=== PATIENT | female | born 1940 | race Caucasian/White ===

== ENCOUNTER 2024-10-27 16:43 | Inpatient (IN) | payer MEDICARE, BC, SELFPAY ==
[2024-10-27] VITALS (9 sets, daily range): BP systolic 112–146; BP diastolic 64–89; PULSE 71–96; RESP 12–19; TEMP 37–37.6; O2SAT 94–99; BMI 29.2
--- NOTE | 2024-10-27 16:45 | EKG_ITS ---
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
--- NOTE | 2024-10-27 16:57 | PD.EDSEIZ ---
ED Seizures RME/HPI General Chief Complaint: Seizure Stated Complaint: SEIZURE Time Seen by Provider: 10/27/24 16:49 Arrival date/time: 10/27/24 16:43 Limitations: no limitations RME / HPI RME / HPI Narrative: DR. MIRZA MAIN ED EVALUATION: 84-year-old female with history of dementia presents to the Emergency Department [facility] from home with complaint of seizure-like activity. Per caregiver, patient was being assisted to the restroom when she began having seizure-like activity lasting approximately 2 minutes just before EMS arrival. EMS arrived about 6 minutes after the seizure ended and patient was already back to normal, not postictal. No known history of seizures. En route by EMS, blood glucose of 51; D10 was administered en route. Vitals notable for rectal temperature of 99.7?F here upon arrival. EMS also noted a right bicep bruise and a left wrist skin tear. Related Data Allergies Allergy/AdvReac Type Severity Reaction Status Date / Time No Known Allergies Allergy Verified 10/27/24 17:25 Review of Systems Review of Systems Systems Reviewed: All systems reviewed, normal except as documented Past Medical History Past Medical History NEUROLOGIC: Positive Dementia Social History SMOKING STATUS: Never smoker SUBSTANCE USE: does not use ALCOHOL: Never ED Exam General Limitations: Present no limitations General appearance: Present alert (at baseline; poor recent memory) and in no apparent distress Head Head exam: Present atraumatic, normocephalic and normal inspection Eye Eye exam: Present normal appearance, PERRL and EOMI ENT ENT exam: Present normal exam, normal oropharynx and mucous membranes moist Neck Neck exam: Present normal inspection, full ROM and trachea midline Chest Chest inspection: Present normal inspection and symmetric chest wall rise Respiratory Respiratory exam: Present normal lung sounds bilaterally Cardiovascular Cardiovascular exam: Present regular rate, normal rhythm and systolic murmur (holosystolic murmur 2/6) Abdominal Exam Abdominal exam: Present soft and normal bowel sounds Extremities Exam Extremities exam: Present normal inspection and full ROM Back Exam Back exam: Present normal inspection and full ROM Neurological Exam Neurological exam: Present alert (at baseline; poor recent memory) Psychiatric Psychiatric exam: Present normal affect and normal mood Skin Skin exam: Present warm, dry, normal color and other (dermatitis of the left leg; right bicep small bruise; left wrist small skin tear) Course Quality Measures none Orders Category Date Time Status Bedside Blood Glucose X1 Care 10/27/24 17:01 Active Bedside Blood Glucose X2 Care 10/27/24 18:45 Active Bedside COVID-19 Antigen Test NOW Care 10/27/24 18:30 Active Bedside Influenza A&B Antigen Test NOW Care 10/27/24 18:30 Completed COVID-19 Screening Questionnaire NOW Care 10/27/24 19:23 Active Riding Teacher NOW Care 10/27/24 17:12 Active Continuous Pulse Oximetry NOW Care 10/27/24 17:12 Completed Decision to Admit X1 Care 10/27/24 19:23 Completed EKG (ED ONLY) *Do not use* NOW Care 10/27/24 16:45 Completed Insert IV NOW Care 10/27/24 17:[address] head/brain wo con Stat Exams 10/27/24 17:12 Completed EKG (ED Only) Stat Exams 10/27/24 16:45 Draft XR chest 1V portable Stat Exams 10/27/24 17:12 Completed Blood Culture (Lab) Stat Lab 10/27/24 19:03 Received CBC Stat Lab 10/27/24 17:41 Completed CRP [C-Reactive Protein] Stat Lab 10/27/24 19:05 Completed Comprehensive Metabolic Panel Stat Lab 10/27/24 17:41 Completed ESR [Sed Rate (ESR)] Stat Lab 10/27/24 19:06 Completed Free T4 (Free Thyroxine) Stat Lab 10/27/24 17:41 Completed Lactate (Lactic Acid) Stat Lab 10/27/24 19:06 Completed Magnesium Stat Lab 10/27/24 17:41 Completed Procalcitonin Stat Lab 10/27/24 19:05 Completed Prothrombin Time with INR Stat Lab 10/27/24 17:41 Completed TSH [Thyroid Stimulating Hormone] Stat Lab 10/27/24 17:41 Completed Troponin I Stat Lab 10/27/24 17:41 Completed Urinalysis Stat Lab 10/27/24 16:54 Completed Azithromycin Inj [Zithromax Inj] 500 mg Med 10/27/24 18:30 Discontinued Sodium Chloride 0.9% 250 ml [Ns] 250 ml IV X1 Calcium Gluc/Ns 1000MG Ivpb [Calcium Gluc/Ns 1000mg Med 10/27/24 18:54 Discontinued Ivpb] 1,000 mg in 50 ml IV X1 Calcium Gluconate 10% Inj Med 10/27/24 20:32 Discontinued 2 gm IV X1 ONE Dextrose 50% Syr [D50w Syringe Abboject] Med 10/27/24 18:44 Discontinued 50 ml IVP X1 ONE KCL 10% Liq UDC 15 ML Med 10/27/24 18:52 Discontinued 40 meq PO X1 ONE KCL 10% Liq UDC 15 ML Med 10/27/24 20:30 Discontinued 40 meq PO X1 ONE Magnesium Sulfate 2 GM Ivpb [Magnesium Sulfate Ivpb] Med 10/27/24 19:22 Discontinued 2 gm in 50 ml IV X1 Magnesium Sulfate 4 GM Ivpb [Magnesium Sulfate Ivpb] Med 10/27/24 20:32 Discontinued 4 gm in 50 ml IV X1 Morphine Inj Med 10/27/24 19:22 Discontinued 3 mg IVP X1 ONE Ondansetron Inj [Zofran Inj] Med 10/27/24 19:27 Discontinued 4 mg IVP X1 ONE POTASSIUM CHL 10 mEq IVPB [Kcl Ivpb] Med 10/27/24 20:32 Discontinued 10 meq in 100 ml IV Q1H POTASSIUM CHL 10 mEq IVPB [Kcl Ivpb] Med 10/27/24 18:52 Discontinued 10 meq in 100 ml IV X1 Sodium Chloride 0.9% 1000 ml [Ns] 1,000 ml Med 10/27/24 17:12 Discontinued IV 999 mls/hr cefTRIAXone/D5w 1gm IV premix [Rocephin/D5w 1gm IV Med 10/27/24 18:29 Discontinued premix] 1 gm in 50 ml IV X1 levETIRAcetam INJ [Keppra Inj] Med 10/27/24 18:29 Discontinued 1,000 mg IVP X1 ONE levETIRAcetam INJ [Keppra Inj] Med 10/27/24 17:12 Discontinued 500 mg IVP X1 ONE Oxygen Delivery NOW RT 10/27/24 17:12 Active Vital Signs Vital signs: Vital Signs Temperature 99.7 F 10/27/24 16:55 Pulse Rate 94 10/27/24 16:55 Respiratory Rate 16 10/27/24 16:55 Blood Pressure 118/84 10/27/24 16:55 Pulse Oximetry (%) 94 L 10/27/24 16:55 Oxygen Delivery Method Room Air 10/27/24 16:55 Seizure MDM Narrative MDM Narrative:: I, Karina Weir am scribing for and in the presence of Dr. Mirza. Patient data External records reviewed:: [facility] previous records and EMS form Clinical information provided by:: patient and EMS Social determinants that could affect healthcare access:: none Patient has the following chronic illnesses:: Dementia. No known history of seizures. How is presenting disease/condition affected by chronic disease/condition?: uneffected by Evaluation data The following diagnostics were reviewed and interpreted by me:: lab results, radiology exam(s) and EKG tracing(s) Lab and/or radiology exams considered but not ordered:: none Interpretation Summary: My interpretation: EKG performed at 1656 hours, atrial fibrillation, rate 91, no STEMI Medications / Prescriptions Medications or Prescriptions considered but not ordered:: none Medication administrations:: Medication Administration History Acetaminophen (Acetaminophen 325 Mg Tablet) 650 mg PO Q6H PRN PRN Reason: Fever >100.4 Stop: 11/26/24 20:36 Acetaminophen (Acetaminophen 325 Mg Tablet) 650 mg PO Q6H PRN PRN Reason: PAIN SCALE 1-3 (mild Stop: 11/26/24 20:36 Hydrocodone Bitart/Acetaminophen (Hydrocodone/Apap 5/325 Tablet) 1 tab PO Q4HR PRN PRN Reason: PAIN SCALE 4-6 (Moderate Stop: 11/01/24 20:36 Last Admin: 10/28/24 01:21 Dose: 1 tab Documented By: DT Dextrose (Dextrose 50%-Water Inj 50 Ml Syringe) 25 ml IV Q15MIN PRN PRN Reason: BG 50-70 responsive npo pt Stop: 11/26/24 21:30 Dextrose (Dextrose 50%-Water Inj 50 Ml Syringe) 50 ml IV Q15MIN PRN PRN Reason: BG <50 OR BG <70 & pt unresponsive Stop: 11/26/24 21:30 Last Admin: 10/27/24 22:36 Dose: 50 ml Documented By: DT Dextrose (Dextrose 50%-Water Inj 50 Ml Syringe) 50 ml IVP X1 ONE Stop: 10/28/24 04:27 Digoxin (Digoxin 0.125 Mg Tablet) 0.125 mg PO QDAY [facility] Stop: 11/27/24 08:59 Glucagon (Glucagon Inj 1 Mg Vial) 1 mg IM Q15MIN PRN PRN Reason: BG <70, and no IV access Ceftriaxone Sodium 1 gm/ (Sodium Chloride) 50 mls @ 100 mls/hr IV QDAY [facility] Stop: 11/04/24 08:59 Azithromycin 500 mg/ Sodium (Chloride) 250 mls @ 250 mls/hr IV QDAY [facility] Stop: 10/30/24 08:59 Sodium Phosphate 30 mmol/ (Sodium Chloride) 510 mls @ 62.5 mls/hr IV X1 ONE Stop: 10/28/24 09:07 Dextrose (D10w 1000 Ml) 1,000 mls @ 70 mls/hr IV .[id number] [facility] Stop: 10/28/24 17:44 Last Admin: 10/28/24 03:29 Dose: 70 mls/hr Documented By: DT Insulin Human Lispro (Insulin Lispro (Admelog) 1 Unit/0.01 Ml Unit) 0 unit SC AC [facility]; Protocol Stop: 11/27/24 07:29 Metoprolol Succinate (Metoprolol Succinate Xl 25 Mg Tabcr) 25 mg PO QDAY [facility] Stop: 11/27/24 08:59 Ondansetron HCl (Ondansetron Inj 2 Mg/Ml Inj 2 Ml) 4 mg IVP Q6H PRN; Protocol PRN Reason: NAUSEA OR VOMITING Stop: 11/26/24 20:36 Pantoprazole Sodium (Pantoprazole 40 Mg Tablet) 40 mg PO Q12HR [facility] Stop: 11/26/24 20:59 Last Admin: 10/27/24 22:23 Dose: 40 mg Documented By: DT Paroxetine HCl (Paroxetine Hcl 10 Mg Tablet) 20 mg PO QDAY [facility] Stop: 11/27/24 08:59 Rivaroxaban (Rivaroxaban 10 Mg Tablet) 2.5 mg PO QDAY [facility] Stop: 11/27/24 08:59 Sennosides (Senna Tablet) 1 tab PO QDAY PRN; Protocol PRN Reason: constipation Stop: 11/26/24 20:36 Discontinued Medications Calcium Gluconate (Calcium Gluconate 10% Inj 1 Gm/10 Ml Vial) 2 gm IV X1 ONE Stop: 10/27/24 20:33 Last Admin: 10/27/24 22:34 Dose: Not Given Documented By: DT Non-Admin Reason: RR >10 Dextrose (Dextrose 50%-Water Inj 50 Ml Syringe) 50 ml IVP X1 ONE Stop: 10/27/24 18:45 Last Admin: 10/27/24 18:48 Dose: 50 ml Documented By: DEA Dextrose (Dextrose 50%-Water Inj 50 Ml Syringe) 50 ml IVP X1 ONE Stop: 10/27/24 22:33 Last Admin: 10/27/24 22:40 Dose: Not Given Documented By: YOLANDA Non-Admin Reason: ADMINISTERED UNDER PRN DOSE Glucagon (Glucagon Inj 1 Mg Vial) 1 mg IVP X1 ONE Stop: 10/27/24 22:33 Last Admin: 10/27/24 22:41 Dose: 1 mg Documented By: YOLANDA Sodium Chloride (Ns) 1,000 mls @ 999 mls/hr IV .Q1H1M ONE Stop: 10/27/24 18:12 Last Infusion: 10/27/24 19:05 Dose: Infused Documented By: Admin: 10/27/24 17:31 Dose: 999 mls/hr Documented By: DEA Ceftriaxone Sodium/Dextrose (Rocephin/D5w 1gm Iv Premix) 1 gm in 50 mls @ 100 mls/hr IV X1 ONE Stop: 10/27/24 18:58 Last Infusion: 10/27/24 19:25 Dose: Infused Documented By: Admin: 10/27/24 18:52 Dose: 100 mls/hr Documented By: DEA Azithromycin 500 mg/ Sodium (Chloride) 250 mls @ 250 mls/hr IV X1 ONE Stop: 10/27/24 19:29 Last Infusion: 10/27/24 20:19 Dose: Infused Documented By: Admin: 10/27/24 19:18 Dose: 250 mls/hr Documented By: YOLANDA Potassium Chloride (Kcl Ivpb) 10 meq in 100 mls @ 100 mls/hr IV X1 ONE Stop: 10/27/24 19:51 Last Infusion: 10/27/24 20:14 Dose: Infused Documented By: Admin: 10/27/24 19:14 Dose: 100 mls/hr Documented By: DT Calcium Gluconate/Sodium Chloride (Calcium Gluc/Ns 1000mg Ivpb) 1,000 mg in 50 mls @ 50 mls/hr IV X1 ONE Stop: 10/27/24 19:53 Last Infusion: 10/27/24 20:14 Dose: Infused Documented By: Admin: 10/27/24 19:14 Dose: 50 mls/hr Documented By: YOLANDA Magnesium Sulfate (Magnesium Sulfate Ivpb) 2 gm in 50 mls @ 25 mls/hr IV X1 ONE Stop: 10/27/24 21:21 Last Infusion: 10/27/24 22:25 Dose: Infused Documented By: Admin: 10/27/24 20:25 Dose: 25 mls/hr Documented By: DT Potassium Chloride (Kcl Ivpb) 10 meq in 100 mls @ 100 mls/hr IV Q1H [facility] Stop: 10/28/24 00:31 Last Infusion: 10/28/24 03:09 Dose: Infused Documented By: Admin: 10/28/24 01:08 Dose: 100 mls/hr Documented By: Infusion: 10/28/24 00:20 Dose: Infused Documented By: Admin: 10/27/24 23:20 Dose: 100 mls/hr Documented By: Infusion: 10/27/24 23:19 Dose: Infused Documented By: Admin: 10/27/24 22:19 Dose: 100 mls/hr Documented By: Infusion: 10/27/24 22:02 Dose: Infused Documented By: Admin: 10/27/24 21:02 Dose: 100 mls/hr Documented By: DT Magnesium Sulfate (Magnesium Sulfate Ivpb) 4 gm in 50 mls @ 12.5 mls/hr IV X1 ONE Stop: 10/28/24 00:31 Last Infusion: 10/28/24 02:41 Dose: Infused Documented By: Admin: 10/27/24 22:19 Dose: 12.5 mls/hr Documented By: YOLANDA Dextrose/Lactated Ringer's (D5-Lr) 1,000 mls @ 100 mls/hr IV .Q10H [place] Stop: 10/28/24 07:44 Last Admin: 10/27/24 21:41 Dose: 100 mls/hr Documented By: YOLANDA Dextrose (D10w 1000 Ml) 1,000 mls @ 70 mls/hr IV .[id number] [place] Stop: 10/28/24 12:13 Last Admin: 10/27/24 22:15 Dose: 70 mls/hr Documented By: YOLANDA Dextrose (D10w 1000 Ml) 1,000 mls @ 50 mls/hr IV .Q20H [place] Stop: 10/28/24 20:39 Last Admin: 10/28/24 01:17 Dose: Not Given Documented By: DT Non-Admin Reason: Cancelled by Provider Calcium Gluconate/Sodium Chloride (Calcium Gluc/Ns 1000mg Ivpb) 1,000 mg in 50 mls @ 50 mls/hr IV X1 ONE Stop: 10/28/24 01:55 Last Infusion: 10/28/24 02:42 Dose: Infused Documented By: Admin: 10/28/24 01:42 Dose: 50 mls/hr Documented By: DT Calcium Gluconate/Sodium Chloride (Calcium Gluc/Ns 1000mg Ivpb) 1,000 mg in 50 mls @ 50 mls/hr IV X1 ONE Stop: 10/28/24 02:59 Last Infusion: 10/28/24 03:40 Dose: Infused Documented By: Admin: 10/28/24 02:40 Dose: 50 mls/hr Documented By: DT Dextrose (D10w 1000 Ml) 1,000 mls @ 50 mls/hr IV .Q20H [facility] Stop: 10/28/24 21:19 Last Admin: 10/28/24 01:28 Dose: 50 mls/hr Documented By: DT Levetiracetam (Levetiracetam Inj 100 Mg/Ml Vial 5ml) 500 mg IVP X1 ONE Stop: 10/27/24 17:13 Last Admin: 10/27/24 17:31 Dose: 500 mg Documented By: DEA Levetiracetam (Levetiracetam Inj 100 Mg/Ml Vial 5ml) 1,000 mg IVP X1 ONE Stop: 10/27/24 18:30 Last Admin: 10/27/24 18:42 Dose: 1,000 mg Documented By: DEA Morphine Sulfate (Morphine Sulf Inj 10 Mg/Ml Vial) 3 mg IVP X1 ONE Stop: 10/27/24 19:23 Last Admin: 10/27/24 19:33 Dose: 3 mg Documented By: DT Ondansetron HCl (Ondansetron Inj 2 Mg/Ml Inj 2 Ml) 4 mg IVP X1 ONE; Protocol Stop: 10/27/24 19:28 Last Admin: 10/27/24 19:33 Dose: 4 mg Documented By: DT Potassium Chloride (Potassium Chloride 10% 20 Meq/15 Ml Udc) 40 meq PO X1 ONE Stop: 10/27/24 18:53 Last Admin: 10/27/24 19:22 Dose: 40 meq Documented By: DT Potassium Chloride (Potassium Chloride 10% 20 Meq/15 Ml Udc) 40 meq PO X1 ONE Stop: 10/27/24 20:31 Last Admin: 10/27/24 21:05 Dose: 40 meq Documented By: DT Sodium Chloride (Sodium Chloride Rt 10% 15 Ml Nebu) 5 ml INH X1 ONE Stop: 10/27/24 21:39 Last Admin: 10/27/24 22:56 Dose: 5 ml Documented By: KB see above if any Consultations Consultation(s) initiated? (list below): No Diagnosis Seizure Differential Diagnosis: other (hypoglycemia-induced seizure, new-onset seizure in elderly with dementia, syncope with convulsive movements) Most likely diagnosis given after review of the tests above:: No official diagnoses at this time, still pending diagnostic tests. Patient signout to the cage shift manager provider. Admission Indicated Admission indicated?: not indicated Explain why admission is indicated or not indicated:: No final disposition plan at this time, still pending diagnostic tests. Patient signout to the cage shift manager provider. Admission Request Was there a request for admission?: No Disposition Plan Disposition Plan: other (specify) (Patient signed out to Dr. Carrillo, pending head CT, CXR, remainder of labs, and final disposition.) Discharge Plan Plan Patient Disposition: Admit Acute Care w/in Hospital Problem List Clinical Impression: Pneumonia, UTI (urinary tract infection), Hypokalemia, Hypocalcemia, Hypoglycemia, Witnessed seizure-like activity, Hypomagnesemia MD Attestation MD Attestation I took over the care from previous shift physician at 6 PM on 10/27/2024. See previous notes for complete H & P and ED course. I reviewed all diagnostic test results. My interpretation of the EKG is My interpretation of the chest x-ray is Bilateral lower lung zone pneumonia. My review of the Head CT report is NAD. Consider elective brain MRI follow-up, pre and postcontrast procedure protocol. Blood tests and urine tests Diagnoses include: Treatment here included 191: I discussed the case with our hospitalist. About the presentation and exam and diagnostics and treatments here. And need of further care in the hospital. Will accept the patient. Tyrel Carrillo MD
--- NOTE | 2024-10-27 17:12 | XR_ITS ---
Examination: CT brain head without contrast. 2-D sagittal coronal reconstructions Date and time of exam:October 27, 2024 1535 hours INDICATION: Seizure today CTDI: vol (mGy):48.5 DLP: (mGycm):1044 Technique: Multiple CT axial sections of the brain have been obtained, 5 mm slice thickness. Contrast has not been administered. 2-D sagittal, coronal reconstructions have been obtained Low dose protocols were performed. One or more of the following dose reduction techniques were used; automated exposure control, adjustment of the mA and/or KV according to patient size, use of iterative reconstruction technique. Findings: No significant ventricular enlargement. Intra-axial or extra-axial hemorrhage density is not seen. No mass effect or midline shift Basal cisterns are not remarkable. Fourth ventricle is midline. Cranial vault intact. Impression: Negative for acute hemorrhage, mass effect or midline shift Consider elective brain MRI follow-up, pre and postcontrast procedure protocol
--- NOTE | 2024-10-27 17:12 | XR_ITS ---
Examination: AP chest single view TECHNIQUE: AP portable upright chest single view Date and time: October 27, 2024, 1724 hours INDICATIONS: Chest pain and shortness of breath coughing beginning today. FINDINGS: Opacity in both lower lung zones consistent with pneumonia No major cardiac enlargement Mild to moderate elevation left hemidiaphragm Ectatic and enlarged thoracic aorta Prominent osteopenia Old deformity right humeral neck IMPRESSION: Bilateral lower lung zone pneumonia
[2024-10-27 17:25] LABS: Collection Type, Urine Clean Catch
[2024-10-27] MEDS: SODIUM CHLORIDE 0.9% 1000 ML 1,000 ML 999 ML IV (17:31)
[2024-10-27] MEDS: levETIRAcetam INJ 100 MG/ML VIAL 5ML 500 MG IVP (17:31)
[2024-10-27 17:50] LABS: Basophils # (Auto) 0.0 Thou/mm3 (0.0-0.2); Basophils % (Auto) 0 % (0-2.5); Eosinophils # (Auto) 0.1 Thou/mm3 (0.0-0.5); Eosinophils % (Auto) 1 % (0-10); Hematocrit 34.7 % (36.0-46.0); Hemoglobin 11.0 g/dL (12.0-16.0); Immature Granulocytes Auto 0.02 Thou/mm3 (0.00-0.00); Lymphocytes # (Auto) 0.9 Thou/mm3 (1.0-4.8); Lymphocytes % (Auto) 18 % (10-50); Mean Corpuscular HGB Conc 31.7 g/dl (31.0-37.0); Mean Corpuscular Hemoglobin 26.8 pg (25.0-35.0); Mean Corpuscular Volume 85 fL (80-100); Monocytes # (Auto) 0.6 Thou/mm3 (0.0-0.8); Monocytes % (Auto) 11 % (0-12); Neutrophils # (Auto) 3.6 Thou/mm3 (1.8-7.7); Neutrophils % (Auto) 70 % (37-80); Nucleated Red Blood Cell # 0.00 Thou/mm3 (0.00-0.00); Nucleated Red Blood Cell % 0 /100 WBC (0); Platelet Count 179 Thou/mm3 (140-440); RDW Standard Deviation 43.4 fL (36.4-46.3); Red Blood Count 4.10 Miln/mm3 (4.00-5.20); White Blood Count 5.2 Thou/mm3 (3.6-11.0)
[2024-10-27 17:53] LABS: Amorphous Crystals,Urine Present (Absent); Bacteria,Urine 4+; Bilirubin,Urine Negative (Negative); Blood,Urine 1+ (Negative); Clarity,Urine Turbid (Clear/Hazy); Color,Urine Yellow (Lt Yel-Yel); Glucose, Urine 2+ (Negative); Ketones,Urine 1+ (Negative); Leukocyte Esterase,Urine Positive (Negative); Nitrite,Urine Positive (Negative); PH,Urine 5.5 (5.0-7.0); Protein,Urine Trace (Neg - Trace); RBC,Urine 11 /hpf (0-3); Specific Gravity,Urine 1.015 (1.001-1.035); Squamous Epithelial Cell,Urine 3 /hpf (0-5); Urobilinogen,Urine Negative mg/dL (0.0-1.0); WBC,Urine 74 /hpf (0-5)
[2024-10-27 18:04] LABS: INR 1.4 (0.9-1.3); Prothrombin Time 15.4 Seconds (9.0-12.2)
--- NOTE | 2024-10-27 18:07 | PD.EDADDENDU ---
Emergency Room Addendum <Jud Byrne - Last Filed: 10/27/24 20:02> Addendum Narrative: I took over the care from previous shift physician at 6 PM on 10/27/2024. See previous notes for complete H & P and ED course. I reviewed all diagnostic test results. My interpretation of the EKG is My interpretation of the chest x-ray is Bilateral lower lung zone pneumonia. My review of the Head CT report is NAD. Consider elective brain MRI follow-up, pre and postcontrast procedure protocol. Blood tests and urine tests Diagnoses include: Treatment here included 1910: I discussed the case with our hospitalist. About the presentation and exam and diagnostics and treatments here. And need of further care in the hospital. Will accept the patient. Tyrel Carrillo MD <Tyrel Carrillo MD - Last Filed: 10/27/24 20:06> Addendum Narrative: I took over the care from previous shift physician, Dr. Mirza, at 6 PM on 10/27/2024. See previous notes for complete H & P and ED course. I reviewed all diagnostic test results. My interpretation of the EKG is: Atrial fibrillation (91 bpm) with nonspecific ST-T changes. My interpretation of the chest x-ray is bilateral infiltrates. My review of the Head CT report is NAD. Blood tests and urine tests remarkable for K 2.6, lactic acid 3.9, Ca 5.9, Mg 1.0, and UTI. Diagnoses include: Seizure-like activity, UTI, pneumonia, hypoglycemia, hypokalemia, hypocalcemia, and hypomagnesemia. Treatment here included IV fluid, Keppra, Zithromax, Rocephin, KCl, MgSO4, and calcium gluconate. 191: I discussed the case with our hospitalist. About the presentation and exam and diagnostics and treatments here. And need of further care in the hospital. Will accept the patient. Tyrel Carrillo MD
[2024-10-27 18:42] LABS: Alanine Aminotransferase 9 U/L (10-49); Albumin, Serum 3.2 gm/dL (3.4-4.8); Albumin/Globulin Ratio 1.5 (1.2-2.2); Alkaline Phosphatase 49 U/L (46-116); Anion Gap 17 (7-16); Aspartate Amino Transferase 35 U/L (0-34); BUN/Creatinine Ratio 13 Ratio (12-20); Bilirubin,Total 1.1 mg/dL (0.3-1.2); Blood Urea Nitrogen 10 mg/dL (9-23); Carbon Dioxide 22.3 mMol/L (20.0-31.0); Chloride 103 mMol/L (98-107); Creatinine (Component) 0.8 mg/dL (0.6-1.3); Estimated Creatinine Clearance 50.8 mL/min (>60); Globulin 2.2 gm/dL (2.3-3.5); Glucose 110 mg/dL (74-106); Osmolality,Calculated 283 (275-295); Sodium 142 mMol/L (136-145); Total Protein 5.4 gm/dL (5.7-8.2); eGFR > 60 See Note
[2024-10-27] MEDS: levETIRAcetam INJ 100 MG/ML VIAL 5ML 1000 MG IVP (18:42)
[2024-10-27 18:47] LABS: Calcium 5.9 mg/dL (8.3-10.6); Calcium (Corrected) 6.5 mg/dL (8.5-10.1); Potassium 2.6 mMol/L (3.4-5.1)
[2024-10-27] MEDS: DEXTROSE 50%-WATER INJ 50 ML SYRINGE IVP (18:48)
[2024-10-27] MEDS: cefTRIAXone/D5w 1gm IV premix 1 GM/50 ML BAG IV (18:52)
[2024-10-27 19:11] LABS: Free T4 (Free Thyroxine) 1.22 ng/dL (0.89-1.76); Magnesium 1.0 mg/dL (1.6-2.6); Thyroid Stimulating Hormone 0.20 uIU/mL (0.55-4.78); Troponin I < 0.020 ng/mL (0.0-0.045)
[2024-10-27] MEDS: POTASSIUM CHL 10 mEq IVPB 10 MEQ/100 ML BAG 100 MEQ IV ×4 (19:14→23:20)
[2024-10-27] MEDS: CALCIUM GLUC/NS 1000MG IVPB 1,000 MG/50 ML BAG 50 MG IV (19:14)
[2024-10-27 19:17] LABS: Lactate (Lactic Acid) 3.9 mMol/L (0.4-2.0)
[2024-10-27] MEDS: AZITHROMYCIN INJ 500 MG in SODIUM CHLORIDE 0.9% 250 ML 250 ML 250 MG IV (19:18)
[2024-10-27 19:19] LABS: Sed Rate (ESR) 30 mm/hr (0-30)
[2024-10-27] MEDS: POTASSIUM CHLORIDE 10% 20 MEQ/15 ML UDC 40 MEQ PO ×2 (19:22→21:05)
[2024-10-27] MEDS: MORPHINE SULF INJ 10 MG/ML VIAL 3 MG IVP (19:33)
[2024-10-27] MEDS: ONDANSETRON INJ 2 MG/ML INJ 2 ML 4 MG IVP (19:33)
[2024-10-27 19:46] LABS: C-Reactive Protein < 0.5 mg/dL (0.0-0.9); Procalcitonin 0.07 ng/ml (0.0-0.49)
[2024-10-27] MEDS: Magnesium Sulfate 2 GM Ivpb 2 GM/50 ML BAG IV (20:25)
[2024-10-27] MEDS: DEXTROSE 5%-LACTATED RINGERS 1,000 ML 100 ML IV (21:41)
[2024-10-27 22:07] LABS: Base Excess, Venous 0 (-3-3); O2 Saturation, Venous 66 % (96-97); PCO2, Venous 33 mmHg (36-56); PO2, Venous 32 mmHg (15-58); pH, Venous 7.46 (7.33-7.66)
--- NOTE | 2024-10-27 22:07 | ESHP_ITS ---
Documentation for date of: 10/27/24 HPI History of Present Illness Chief complaint: Seizure-like activity, asx with Hypoglycemia, metabolic, uti History of present illness: 84-year-old female with a history of dementia, atrial fibrillation, type 2 diabetes mellitus (not on insulin), hypertension, heart disease s/p cardiac catheterization, and blindness (vision loss due to diabetes), who presents after an episode of seizure-like activity at home. Per caregiver (her daughter), the patient was being assisted to the restroom when she developed generalized shaking, stiffened extremities, upward eye deviation, and arching of her back lasting approximately 2 minutes. No prior seizure history. EMS arrived after the episode ended; she was not postictal. Initial EMS glucose was 51 -> treated with D10 and D50 -> dave to 196 -> then dropped again to 66 -> given additional D50 and juice -> trended to 125 -> 109 - > 90. Started on D10 infusion which stabilized her glucose to ~89. Patient has had minimal oral intake for 2 days due to abdominal pain and nausea. She reportedly has not eaten well, tolerating only small snacks or Coke, and has had some vomiting. No recent insulin use. Stomach pain started yesterday and is diffuse, with discomfort on palpation. Denies hematemesis, melena, or diarrhea. Urinary frequency and ammoniacal odor noted by caregiver. She also endorsed mild chest discomfort and shortness of breath. No recent headache or trauma. She is normally interactive but appeared more confused and in pain today. ED Course: The patient was brought in by EMS following a witnessed seizure-like episode at home. On EMS arrival, she was alert without postictal confusion, but her initial [id number] glucose was critically low at 51 mg/dL. She was treated with D10 and an amp of D50 in the field, with transient improvement to 196 mg/dL. However, her glucose continued to trend down despite repeated D50 boluses and oral intake, reaching a aric of 66, then 125, 109, and 90 mg/dL. A D10 infusion was initiated, stabilizing her glucose in the high 80s. Labs revealed significant electrolyte abnormalities, including hypokalemia, hypocalcemia, and hypomagnesemia, all of which were repleted. UA was suggestive of a urinary tract infection, and chest X-ray revealed bilateral lower lung zone pneumonia. EKG showed atrial fibrillation with a controlled rate, and head CT ruled out acute intracranial pathology. She remained hemodynamically stable but was admitted for further management of suspected sepsis, recurrent hypoglycemia, and new-onset seizure-like activity. ROS: Constitutional: Reduced oral intake, fatigue Neuro: Seizure-like episode, increased confusion GI: Diffuse abdominal pain, nausea, minimal vomiting, poor PO intake : Increased urination, ammoniacal odor Cardiac: Chest discomfort, history of AFib Resp: Mild SOB Skin: Right bicep bruise, left wrist tear Endocrine: Known DM2, hypoglycemia MSK: Reports arthritis Psych: History of depression Past Medical History: * Dementia * Atrial fibrillation (diagnosed last year) * Type 2 diabetes mellitus (no insulin use) * Hypertension * Coronary artery disease s/p catheterization * Degenerative Arthritis * Depression * Blindness (from diabetic retinopathy) Past Surgical History: * Cardiac catheterization (details unknown) Medications (per caregiver bag): * Prednisone 1 mg * Digoxin 125 mcg * Metoprolol 25 mg * Xarelto * glimepiride * Rivastigmine (Exelon) patch * Pantoprazole 40 mg Allergies: * NKDA Family History: * Unknown Social History: * Lives at home with caregiver (daughter) * Fully dependent for ADLs * Blind (total vision loss) * Non-smoker, no alcohol, no drug use Imaging: * CXR: Bilateral lower lung zone pneumonia * EKG: Atrial fibrillation, HR 91 * Head CT: No acute findings Exam Vital Signs Temp Pulse Resp BP Pulse Ox O2 Del Method 98.6 F 79 14 130/65 99 Room Air 10/27/24 21:00 10/27/24 21:00 10/27/24 21:00 10/27/24 21:00 10/27/24 21:10/27/24 21:00 Narrative Exam General: Alert, frail elderly female in mild distress Neuro: No focal deficits; at baseline for dementia per caregiver HEENT: Pale conjunctiva CV: Irregularly irregular, HR 91 Resp: No distress noted; lungs not documented Abdomen: Diffuse tenderness reported Skin: Right bicep ecchymosis, left wrist skin tear Ext: No edema Results: Labs 10/27/24 17:41 10/27/24 23:10 Labs: Short CBC 10/27/24 Range/Units 17:41 WBC 5.2 (3.6-11.0) Thou/mm3 Hgb 11.0 L (12.0-16.0) g/dL Hct 34.7 L (36.0-46.0) % Plt Count 179 (140-440) Thou/mm3 BMP 10/27/24 17:41 Sodium 142 Potassium 2.6 L* Chloride 103 Carbon Dioxide 22.3 BUN 10 Creatinine 0.8 Glucose 110 H Calcium 5.9 L* Cardiac Enzymes 10/27/24 Range/Units 17:41 Troponin I < 0.020 (0.0-0.045) ng/mL Liver Function 10/27/24 Range/Units 17:41 Total Bilirubin 1.1 (0.3-1.2) mg/dL AST 35 H (0-34) U/L ALT 9 L (10-49) U/L Alkaline Phosphatase 49 (46-116) U/L Albumin 3.2 L (3.4-4.8) gm/dL Urine 10/27/24 Range/Units 16:54 Urine Color Yellow (Lt Yel-Yel) Urine Clarity Turbid A (Clear/Hazy) Urine pH 5.5 (5.0-7.0) Ur Specific [place] 1.015 (1.001-1.035) Urine Protein Trace (Neg - Trace) Urine Glucose (UA) 2+ A (Negative) Quality Measures Quality Measures VTE prophylaxis Advance care planning discussed with:: legal surragate Medications Home Medications and Allergies Allergies Allergy/AdvReac Type Severity Reaction Status Date / Time No Known Allergies Allergy Verified 10/27/24 17:25 Visit Medications Acetaminophen (Acetaminophen 325 Mg Tablet) 650 mg PO Q6H PRN PRN Reason: Fever >100.4 Stop: 11/26/24 20:36 Acetaminophen (Acetaminophen 325 Mg Tablet) 650 mg PO Q6H PRN PRN Reason: PAIN SCALE 1-3 (mild Stop: 11/26/24 20:36 Hydrocodone Bitart/Acetaminophen (Hydrocodone/Apap 5/325 Tablet) 1 tab PO Q4HR PRN PRN Reason: PAIN SCALE 4-6 (Moderate Stop: 11/01/24 20:36 Dextrose (Dextrose 50%-Water Inj 50 Ml Syringe) 25 ml IV Q15MIN PRN PRN Reason: BG 50-70 responsive npo pt Stop: 11/26/24 21:30 Dextrose (Dextrose 50%-Water Inj 50 Ml Syringe) 50 ml IV Q15MIN PRN PRN Reason: BG <50 OR BG <70 & pt unresponsive Stop: 11/26/24 21:30 Glucagon (Glucagon Inj 1 Mg Vial) 1 mg IM Q15MIN PRN PRN Reason: BG <70, and no IV access Potassium Chloride (Kcl Ivpb) 10 meq in 100 mls @ 100 mls/hr IV Q1H [facility] Stop: 10/28/24 00:31 Last Admin: 10/27/24 21:02 Dose: 100 mls/hr Magnesium Sulfate (Magnesium Sulfate Ivpb) 4 gm in 50 mls @ 12.5 mls/hr IV X1 ONE Stop: 10/28/24 00:31 Ceftriaxone Sodium 1 gm/ (Sodium Chloride) 50 mls @ 100 mls/hr IV QDAY [facility] Stop: 11/04/24 08:59 Azithromycin 500 mg/ Sodium (Chloride) 250 mls @ 250 mls/hr IV QDAY [facility] Stop: 10/30/24 08:59 Dextrose (D10w 1000 Ml) 1,000 mls @ 70 mls/hr IV .[id number] [facility] Stop: 10/28/24 12:13 Insulin Human Lispro (Insulin Lispro (Admelog) 1 Unit/0.01 Ml Unit) 0 unit SC AC NORBERT; Protocol Stop: 11/27/24 07:29 Ondansetron HCl (Ondansetron Inj 2 Mg/Ml Inj 2 Ml) 4 mg IVP Q6H PRN; Protocol PRN Reason: NAUSEA OR VOMITING Stop: 11/26/24 20:36 Pantoprazole Sodium (Pantoprazole 40 Mg Tablet) 40 mg PO Q12HR [facility]BERT Stop: 11/26/24 20:59 Sennosides (Senna Tablet) 1 tab PO QDAY PRN; Protocol PRN Reason: constipation Stop: 11/26/24 20:36 Discontinued Medications Calcium Gluconate (Calcium Gluconate 10% Inj 1 Gm/10 Ml Vial) 2 gm IV X1 ONE Stop: 10/27/24 20:33 Dextrose (Dextrose 50%-Water Inj 50 Ml Syringe) 50 ml IVP X1 ONE Stop: 10/27/24 18:45 Last Admin: 10/27/24 18:48 Dose: 50 ml Sodium Chloride (Ns) 1,000 mls @ 999 mls/hr IV .Q1H1M ONE Stop: 10/27/24 18:12 Last Infusion: 10/27/24 19:05 Dose: Infused Ceftriaxone Sodium/Dextrose (Rocephin/D5w 1gm Iv Premix) 1 gm in 50 mls @ 100 mls/hr IV X1 ONE Stop: 10/27/24 18:58 Last Infusion: 10/27/24 19:25 Dose: Infused Azithromycin 500 mg/ Sodium (Chloride) 250 mls @ 250 mls/hr IV X1 ONE Stop: 10/27/24 19:29 Last Infusion: 10/27/24 20:19 Dose: Infused Potassium Chloride (Kcl Ivpb) 10 meq in 100 mls @ 100 mls/hr IV X1 ONE Stop: 10/27/24 19:51 Last Infusion: 10/27/24 20:14 Dose: Infused Calcium Gluconate/Sodium Chloride (Calcium Gluc/Ns 1000mg Ivpb) 1,000 mg in 50 mls @ 50 mls/hr IV X1 ONE Stop: 10/27/24 19:53 Last Infusion: 10/27/24 20:14 Dose: Infused Magnesium Sulfate (Magnesium Sulfate Ivpb) 2 gm in 50 mls @ 25 mls/hr IV X1 ONE Stop: 10/27/24 21:21 Last Admin: 10/27/24 20:25 Dose: 25 mls/hr Dextrose/Lactated Ringer's (D5-Lr) 1,000 mls @ 100 mls/hr IV .Q10H [facility]ERT Stop: 10/28/24 07:44 Last Admin: 10/27/24 21:41 Dose: 100 mls/hr Levetiracetam (Levetiracetam Inj 100 Mg/Ml Vial 5ml) 500 mg IVP X1 ONE Stop: 10/27/24 17:13 Last Admin: 10/27/24 17:31 Dose: 500 mg Levetiracetam (Levetiracetam Inj 100 Mg/Ml Vial 5ml) 1,000 mg IVP X1 ONE Stop: 10/27/24 18:30 Last Admin: 10/27/24 18:42 Dose: 1,000 mg Morphine Sulfate (Morphine Sulf Inj 10 Mg/Ml Vial) 3 mg IVP X1 ONE Stop: 10/27/24 19:23 Last Admin: 10/27/24 19:33 Dose: 3 mg Ondansetron HCl (Ondansetron Inj 2 Mg/Ml Inj 2 Ml) 4 mg IVP X1 ONE; Protocol Stop: 10/27/24 19:28 Last Admin: 10/27/24 19:33 Dose: 4 mg Potassium Chloride (Potassium Chloride 10% 20 Meq/15 Ml Udc) 40 meq PO X1 ONE Stop: 10/27/24 18:53 Last Admin: 10/27/24 19:22 Dose: 40 meq Potassium Chloride (Potassium Chloride 10% 20 Meq/15 Ml Udc) 40 meq PO X1 ONE Stop: 10/27/24 20:31 Last Admin: 10/27/24 21:05 Dose: 40 meq Sodium Chloride (Sodium Chloride Rt 10% 15 Ml Nebu) 5 ml INH X1 ONE Stop: 10/27/24 21:39 Assessment & Plan Plan 84-year-old female with dementia, DM2 and AFib, presenting with seizure-like activity and hypoglycemia, found to have electrolyte abnormalities, pneumonia, UTI, and AFib on EKG. #New-onset seizure-like activity Single witnessed episode, likely provoked by severe hypoglycemia and/or metabolic derangement and/or UTI Per daughter patient had no postictal state, incontinence, or tongue biting. Patient received loading dose of Levetiracetam, will hold antiepileptics as patient had no prior hx of epilepsy and low risk of recurrence. Head CT negative for acute findings or mass Plan: * Monitor for recurrence * EEG if recurrent or unclear episodes * Neurology consult if persistent events #Hypoglycemia Likely multifactorial (poor PO, infection, possibly meds). Plan: * Continue D10W drip * Monitor glucose q1h * Avoid insulin/sulfonylureas * A1c pending #Pneumonia Bilateral lower lung infiltrates on CXR Plan: * Continue ceftriaxone (10/27- ) * Start azithromycin * Monitor vitals, oxygenation * Repeat CXR if symptoms worsen #UTI Positive UA findings, poor PO intake, Plan: * Continue empiric abx (ceftriaxone covers) * Blood/urine cultures pending #Aniongap metabolic acidosis-Resolved #Lactic acidosis-Improving #Electrolyte abnormalities (hypoK, hypoCa, hypoMg) Plan: * Continue repletion per protocol * Daily BMP/Mg/Ca #Atrial fibrillation Chronic AFib, rate-controlled CHADSVASC 5 Plan: * Continue home digoxin/metoprolol/xarelto when stable #Abdominal pain, poor oral intake Likely multifactorial: infection, med-related, gastritis Plan: * Pantoprazole, monitor bowel function * Abdominal exam daily * Monitor for obstruction/perforation #Subclinical hyperthyroidism TSH 0.2 with normal free T4 Plan: * No treatment for now * Recheck TSH in future; follow-up with PCP #Dementia / Vision loss Plan: * Reinforce fall precautions * Reassess for delirium daily * Keep orientation cues at bedside #Skin injuries (bruises/tear) Plan: * Wound care consult * Monitor for healing Health Maintenance Disposition: Admit to tele Diet: advance after swallow screen Thromboprophylaxis: Xarelto 2.5mg GI prophylaxis: Pantoprazole IV Code Status: Full code ----- Plan discussed with attending physician Dr. Ramin Frost MD PGY-1 Internal Medicine Attending Provider Attestation/Addendum Attending Provider Attestation/Addendum After examination of the patient and review of the clinical data I feel that this patient needs admission to the hospital for further treatment/evaluation. I Rodrigo Cabral MD, attest that I was physically present for mcdonnell portions of evaluation, and examined patient, labs and imaging of patient were reviewed with the residents and a plan of care was discussed with IM team, along with patient's two daughters present by bedside. I agree with the findings and plans documented above.
[2024-10-27 22:11] LABS: Reflex Lactate? Y
[2024-10-27] MEDS: DEXTROSE 10%-WATER 1000 ML 1,000 ML 70 ML IV (22:15)
[2024-10-27] MEDS: Magnesium Sulfate 4 GM Ivpb 4 GM/50 ML BAG IV (22:19)
[2024-10-27] MEDS: PANTOPRAZOLE 40 MG TABLET PO (22:23)
[2024-10-27] MEDS: DEXTROSE 50%-WATER INJ 50 ML SYRINGE IV (22:36)
[2024-10-27] MEDS: GLUCAGON INJ 1 MG VIAL IVP (22:41)
[2024-10-27] MEDS: SODIUM CHLORIDE RT 10% 15 ML NEBU 5 ML INH (22:56)
--- NOTE | 2024-10-27 23:02 | PC.RT ---
unable to obtain sputum sample with sputum induction
[2024-10-27 23:24] LABS: Lactate (Lactic Acid) 2.5 mMol/L (0.4-2.0)
[2024-10-27 23:35] LABS: Glucose Estimated Average 146 mg/dL (80-131); Hemoglobin A1C 6.7 % Hgb (4.8-6.0)
[2024-10-27 23:51] LABS: Albumin, Serum 3.3 gm/dL (3.4-4.8); Anion Gap 13 (7-16); BUN/Creatinine Ratio 8 Ratio (12-20); Blood Urea Nitrogen 7 mg/dL (9-23); Carbon Dioxide 23.4 mMol/L (20.0-31.0); Chloride 103 mMol/L (98-107); Creatinine (Component) 0.9 mg/dL (0.6-1.3); Estimated Creatinine Clearance 45.1 mL/min (>60); Magnesium 2.6 mg/dL (1.6-2.6); Phosphorous 1.1 mg/dL (2.4-5.1); Potassium 3.1 mMol/L (3.4-5.1); Sodium 139 mMol/L (136-145); eGFR > 60 See Note
[2024-10-28] VITALS (19 sets, daily range): BP systolic 98–181; BP diastolic 50–114; PULSE 60–93; RESP 14–20; TEMP 36–37; O2SAT 91–100
[2024-10-28 00:08] LABS: Osmolality,Calculated 295 (275-295)
[2024-10-28 00:16] LABS: Calcium 6.2 mg/dL (8.3-10.6); Calcium (Corrected) 6.8 mg/dL (8.5-10.1); Glucose 460 mg/dL (74-106)
[2024-10-28] MEDS: POTASSIUM CHL 10 mEq IVPB 10 MEQ/100 ML BAG 100 MEQ IV (01:08)
[2024-10-28] MEDS: HYDROcodone/APAP 5/325 TABLET 1 TAB PO ×2 (01:21→23:19)
[2024-10-28] MEDS: DEXTROSE 10%-WATER 1000 ML 1,000 ML 50 ML IV (01:28)
[2024-10-28] MEDS: CALCIUM GLUC/NS 1000MG IVPB 1,000 MG/50 ML BAG 50 MG IV ×3 (01:42→16:57)
[2024-10-28 02:19] LABS: Reflex Lactate? Y
[2024-10-28 02:44] LABS: Lactic Acid, 3 HR 3.4 mMol/L (0.4-2.0)
[2024-10-28] MEDS: DEXTROSE 10%-WATER 1000 ML 1,000 ML 70 ML IV (03:29)
--- NOTE | 2024-10-28 04:18 | PC.NURSE ---
FAMILY CONTACT INFORMATION - RY SINGLETARY [phone].
[2024-10-28 04:50] LABS: Basophils # (Auto) 0.0 Thou/mm3 (0.0-0.2); Basophils % (Auto) 1 % (0-2.5); Eosinophils # (Auto) 0.1 Thou/mm3 (0.0-0.5); Eosinophils % (Auto) 1 % (0-10); Hematocrit 36.8 % (36.0-46.0); Hemoglobin 11.3 g/dL (12.0-16.0); Immature Granulocytes Auto 0.01 Thou/mm3 (0.00-0.00); Lymphocytes # (Auto) 1.4 Thou/mm3 (1.0-4.8); Lymphocytes % (Auto) 22 % (10-50); Mean Corpuscular HGB Conc 30.7 g/dl (31.0-37.0); Mean Corpuscular Hemoglobin 26.2 pg (25.0-35.0); Mean Corpuscular Volume 85 fL (80-100); Monocytes # (Auto) 0.7 Thou/mm3 (0.0-0.8); Monocytes % (Auto) 11 % (0-12); Neutrophils # (Auto) 4.1 Thou/mm3 (1.8-7.7); Neutrophils % (Auto) 65 % (37-80); Nucleated Red Blood Cell # 0.00 Thou/mm3 (0.00-0.00); Nucleated Red Blood Cell % 0 /100 WBC (0); Platelet Count 182 Thou/mm3 (140-440); RDW Standard Deviation 44.4 fL (36.4-46.3); Red Blood Count 4.31 Miln/mm3 (4.00-5.20); White Blood Count 6.3 Thou/mm3 (3.6-11.0)
[2024-10-28] MEDS: DEXTROSE 50%-WATER INJ 50 ML SYRINGE IVP (04:50)
[2024-10-28] MEDS: OCTREOTIDE ACET INJ 1,000 MCG in SODIUM CHLORIDE 0.9% 100 ML 5.1 MCG IV (05:44)
[2024-10-28 06:54] LABS: Albumin, Serum 3.4 gm/dL (3.4-4.8); Anion Gap 10 (7-16); BUN/Creatinine Ratio 6 Ratio (12-20); Blood Urea Nitrogen 5 mg/dL (9-23); Calcium 6.9 mg/dL (8.3-10.6); Calcium (Corrected) 7.4 mg/dL (8.5-10.1); Carbon Dioxide 25.6 mMol/L (20.0-31.0); Chloride 105 mMol/L (98-107); Creatinine (Component) 0.8 mg/dL (0.6-1.3); Estimated Creatinine Clearance 50.8 mL/min (>60); Glucose 120 mg/dL (74-106); Magnesium 2.9 mg/dL (1.6-2.6); Osmolality,Calculated 279 (275-295); Phosphorous 1.3 mg/dL (2.4-5.1); Potassium 3.0 mMol/L (3.4-5.1); Sodium 141 mMol/L (136-145); eGFR > 60 See Note
[2024-10-28] MEDS: INSULIN LISPRO (AdmeLOG) 1 UNIT/0.01 ML UNIT SC (07:55)
[2024-10-28] MEDS: POT PHOS 15 mMol in NS 250 ML 15 MMOL/250 ML BAG 83.333 MMOL IV ×2 (08:22→11:16)
[2024-10-28] MEDS: DIGOXIN 0.125 MG TABLET PO (09:56)
[2024-10-28] MEDS: PANTOPRAZOLE 40 MG TABLET PO ×2 (09:56→21:00)
[2024-10-28] MEDS: METOPROLOL SUCCINATE XL 25 MG TABCR PO (09:57)
[2024-10-28] MEDS: cefTRIAXone/D5w 1gm IV premix 1 GM/50 ML BAG IV (09:58)
--- NOTE | 2024-10-28 10:14 | PC.CC ---
Patient is a 84 year-old female who presents to the hospital for symptomatic hypoglycemia. Saida MORALES made [id number] contact with patient. ASW introduced self, role, and reason for visit.?Patient appeared alert and oriented to self, location, and situation.?Patient was pleasant and engaged in initial assessment. Patient confirmed information on demographics and reports to living at home with her daughter, Brenda Ledbetter. Patient reports that in the event she is unable to make her own medical decision her medical decision maker is her daughter, Brenda Ledbetter . Patient reports that she ambulates with a front wheel walker and is able to complete her own ADLs. Patient reports she does not use any oxygen and is not a dialysis patient. Patient reports her primary provider is [facility] for prescription medications she uses [facility]. Per bedside EFRAÍN Reyes patient is legally blind. Upon discharge patient plans to return home. field services analyst to follow up with any discharge needs.
[2024-10-28 14:48] LABS: Albumin, Serum 3.7 gm/dL (3.4-4.8); Anion Gap 13 (7-16); BUN/Creatinine Ratio 7 Ratio (12-20); Blood Urea Nitrogen < 5 mg/dL (9-23); Carbon Dioxide 25.8 mMol/L (20.0-31.0); Chloride 103 mMol/L (98-107); Creatinine (Component) 0.7 mg/dL (0.6-1.3); Estimated Creatinine Clearance 58.0 mL/min (>60); Glucose 154 mg/dL (74-106); Osmolality,Calculated 283 (275-295); Phosphorous 4.4 mg/dL (2.4-5.1); Potassium 3.5 mMol/L (3.4-5.1); Sodium 142 mMol/L (136-145); eGFR > 60 See Note
[2024-10-28 15:09] LABS: Calcium 6.6 mg/dL (8.3-10.6); Calcium (Corrected) 6.8 mg/dL (8.5-10.1)
--- NOTE | 2024-10-28 16:02 | ESPR_ITS ---
<Statement entered by Osiris Montilla MD - 11/07/24 14:32> I reviewed above note and agree with findings and plans. I have also personally examined the patient with medicine team and went over assessment and plan with medical team including chemist internship and resident physician. <Statement entered by Vidhi Dumont MD - 10/28/24 17:53> Patient seen at bedside. Patient is an overnight admission originally presented with hypoglycemia for which she has been receiving multiple amps of D50. Patient was started on D10 drip along with octreotide drip to correct hypoglycemia however this morning patient's blood glucose increased therefore both of the drips were stopped and continued blood glucose checks every 1 hour. Over the course of the day patient's blood glucose have been within normal range will hold sliding scale insulin for now and continue to monitor blood glucose every 4 hours. Patient is encouraged to eat a high carb diet. Patient was seen and examined by me personally. I have directly supervised and reviewed documentation by the team resident and agree with its findings with the following exceptions/and additional findings. ------- Plan of care was discussed with the attending, Dr. Eladia Dumont, PGY-2 Documentation for date of: 10/28/24 Subjective Subjective Interval history: Admitted overnight. Patient's daughter Latha not at bedside at the time of interview. Patient is pleasantly demented, lying comfortably in bed not in acute distress. Patient is not able to recall why she is here in the hospital, AOx2 only to person and time. Per chart review, patient has had very decreased oral intake but has continued taking diabetic medication of glimepiride. Endorses abdominal pain, worse on the left side. Is unsure when last bowel movement was. Patient currently denies chest pain, shortness of breath, palpitations, urinary symptoms, dizziness, or lightheadedness. On admission to to hospitalist team, patient was on D10 drip with blood glucose levels increasing from 174 to a max of 258, at which octreotide and D10 drip were discontinued. Patient was encouraged to drink juice boxes and eat high carb diet. Patient glucose now ranges 140s to 150s. In the ED, was also noted to have electrolyte abnormalities with a K 2.6, Phosphorus 1.1 and Mg 1, which were repleted. Exam Vital Signs Temp Pulse Resp BP Pulse Ox O2 Del Method O2 Flow Rate 97.5 F 67 18 168/71 H 93 L Room Air 2 10/28/24 12:19 10/28/24 12:19 10/28/24 12:19 10/28/24 12:19 10/28/24 12:19 10/28/24 12:19 10/28/24 03:09 Narrative Exam GENERAL: AOx2, no acute distress, pleasantly demented elderly HEENT: NC/AT, mucous membranes dry, bilateral sclera anicteric CARDIOVASCULAR: irregular rate and rhythm, S1/S2 present, 3/6 systolic murmur PULMONARY: clear to auscultation bilaterally, no rales/rhonchi/wheezes ABDOMINAL: soft, non-distended, no rebound/guarding, bowel sounds present, d iffuse abd tenderness greatest on L side EXTREMITIES: no peripheral edema SKIN: warm and dry, intact, no rashes, +bruising on BUE, wrapped abrasion on L wrist NEURO: CN II-XII grossly intact, no focal deficits, alert, following commands Objective Labs 10/28/24 04:40 10/28/24 14:20 Labs: Laboratory Results - last 24 hr 10/27/24 10/27/24 10/27/24 16:54 17:41 19:05 WBC 5.2 RBC 4.10 Hgb 11.0 L Hct 34.7 L MCV 85 MCH 26.8 MCHC 31.7 RDW Std Deviation 43.4 Plt Count 179 Neut % (Auto) 70 Lymph % (Auto) 18 [place] % (Auto) 11 Eos % (Auto) 1 Baso % (Auto) 0 Neut # (Auto) 3.6 Lymph # (Auto) 0.9 L [place] # (Auto) 0.6 Eos # (Auto) 0.1 Baso # (Auto) 0.0 Immature Gran # (Auto) 0.02 H Absolute Nucleated RBC 0.00 Immature Gran % 0 Nucleated RBC % 0 ESR PT 15.4 H INR 1.4 H VBG pH VBG pCO2 VBG pO2 VBG O2 Sat (William) VBG Base Excess Sodium 142 Potassium 2.6 L* Chloride 103 Carbon Dioxide 22.3 Anion Gap 17 H BUN 10 Creatinine 0.8 Estim Creat Clear Calc 50.8 L eGFR > 60 BUN/Creatinine Ratio [address] Glu mg/dL Hemoglobin A1c Calculated Osmolality 283 Lactic Acid Calcium 5.9 L* Corrected Calcium 6.5 L* Phosphorus Magnesium 1.0 L Total Bilirubin 1.1 AST 35 H ALT 9 L Alkaline Phosphatase 49 Troponin I < 0.020 C-Reactive Prot, Quant < 0.5 Total Protein 5.4 L Albumin 3.2 L Globulin 2.2 L Albumin/Globulin Ratio 1.5 Procalcitonin 0.07 TSH 0.20 L Free T4 1.22 Ur Collection Type Clean Catch Urine Color Yellow Urine Clarity Turbid A Urine pH 5.5 Ur Specific [place] 1.015 Urine Protein Trace Urine Glucose (UA) 2+ A Urine Ketones 1+ A Urine Blood 1+ A Urine Nitrite Positive Urine Bilirubin Negative Urine Urobilinogen (Auto) Negative Ur Leukocyte Esterase Positive Urine RBC 11 H Urine WBC 74 H Ur Squamous Epith Cells 3 Amorphous Crystals Present A Urine Bacteria 4+ A 10/27/24 10/27/24 10/28/24 19:06 23:10 02:37 WBC RBC Hgb Hct MCV MCH MCHC RDW Std Deviation Plt Count Neut % (Auto) Lymph % (Auto) [place] % (Auto) Eos % (Auto) Baso % (Auto) Neut # (Auto) Lymph # (Auto) [place] # (Auto) Eos # (Auto) Baso # (Auto) Immature Gran # (Auto) Absolute Nucleated RBC Immature Gran % Nucleated RBC % ESR 30 PT INR VBG pH 7.46 VBG pCO2 33 L VBG pO2 32 VBG O2 Sat (William) 66 L VBG Base Excess 0 Sodium 139 Potassium 3.1 L D Chloride 103 Carbon Dioxide 23.4 Anion Gap 13 BUN 7 L Creatinine 0.9 Estim Creat Clear Calc 45.1 L eGFR > 60 BUN/Creatinine Ratio 8 L Glucose 460 H* D Estimated Ave Glu mg/dL 146 H Hemoglobin A1c 6.7 H Calculated Osmolality 295 Lactic Acid 3.9 H 2.5 H 3.4 H Calcium 6.2 L* Corrected Calcium 6.8 L* Phosphorus 1.1 L Magnesium 2.6 Total Bilirubin AST ALT Alkaline Phosphatase Troponin I C-Reactive Prot, Quant Total Protein Albumin 3.3 L Globulin Albumin/Globulin Ratio Procalcitonin TSH Free T4 Ur Collection Type Urine Color Urine Clarity Urine pH Ur Specific [place] Urine Protein Urine Glucose (UA) Urine Ketones Urine Blood Urine Nitrite Urine Bilirubin Urine Urobilinogen (Auto) Ur Leukocyte Esterase Urine RBC Urine WBC Ur Squamous Epith Cells Amorphous Crystals Urine Bacteria 10/28/24 10/28/24 04:40 14:20 WBC 6.3 RBC 4.31 Hgb 11.3 L Hct 36.8 MCV 85 MCH 26.2 MCHC 30.7 L RDW Std Deviation 44.4 Plt Count 182 Neut % (Auto) 65 Lymph % (Auto) 22 [place] % (Auto) 11 Eos % (Auto) 1 Baso % (Auto) 1 Neut # (Auto) 4.1 Lymph # (Auto) 1.4 [place] # (Auto) 0.7 Eos # (Auto) 0.1 Baso # (Auto) 0.0 Immature Gran # (Auto) 0.01 H Absolute Nucleated RBC 0.00 Immature Gran % 0 Nucleated RBC % 0 ESR PT INR VBG pH VBG pCO2 VBG pO2 VBG O2 Sat (William) VBG Base Excess Sodium 141 142 Potassium 3.0 L 3.5 D Chloride 105 103 Carbon Dioxide 25.6 25.8 Anion Gap 10 13 BUN 5 L < 5 L Creatinine 0.8 0.7 Estim Creat Clear Calc 50.8 L 58.0 L eGFR > 60 > 60 BUN/Creatinine Ratio 6 L 7 L Glucose 120 H D [address] Glu mg/dL Hemoglobin A1c Calculated Osmolality 279 283 Lactic Acid Calcium 6.9 L 6.6 L* Corrected Calcium 7.4 L 6.8 L* Phosphorus 1.3 L 4.4 Magnesium 2.9 H Total Bilirubin AST ALT Alkaline Phosphatase Troponin I C-Reactive Prot, Quant Total Protein Albumin 3.4 3.7 Globulin Albumin/Globulin Ratio Procalcitonin TSH Free T4 Ur Collection Type Urine Color Urine Clarity Urine pH Ur Specific [place] Urine Protein Urine Glucose (UA) Urine Ketones Urine Blood Urine Nitrite Urine Bilirubin Urine Urobilinogen (Auto) Ur Leukocyte Esterase Urine RBC Urine WBC Ur Squamous Epith Cells Amorphous Crystals Urine Bacteria ABG Interpretation ABG results: 10/27/24 19:06 VBG pH 7.46 VBG pCO2 33 L VBG pO2 32 VBG Base Excess 0 Quality Measures Quality Measures VTE prophylaxis Advance care planning discussed with:: patient Assessment & Plan Assessment Current Active Medications: Generic Name Dose Route Start Last Admin Trade Name Freq PRN Reason Stop Dose Admin Acetaminophen 650 mg 10/27/24 20:37 Acetaminophen 325 Mg Tablet PO 11/26/24 20:36 Q6H PRN Fever >100.4 Acetaminophen 650 mg 10/27/24 20:37 Acetaminophen 325 Mg Tablet PO 11/26/24 20:36 Q6H PRN PAIN SCALE 1-3 (mild Hydrocodone Bitart/Acetaminophen 1 tab 10/27/24 20:37 10/28/24 01:21 Hydrocodone/Apap 5/325 Tablet PO 11/01/24 20:36 1 tab Q4HR PRN Administration PAIN SCALE 4-6 (Moderate Dextrose 25 ml 10/27/24 21:31 Dextrose 50%-Water Inj 50 Ml Syringe IV 11/26/24 21:30 Q15MIN PRN BG 50-70 responsive npo pt Dextrose 50 ml 10/27/24 21:31 10/27/24 22:36 Dextrose 50%-Water Inj 50 Ml Syringe IV 11/26/24 21:30 50 ml Q15MIN PRN Administration BG <50 OR BG <70 & pt unresponsive Digoxin 0.125 mg 10/28/24 09:00 10/28/24 09:56 Digoxin 0.125 Mg Tablet PO 11/27/24 08:59 0.125 mg QDAY NORBERT Administration Glucagon 1 mg 10/27/24 21:31 Glucagon Inj 1 Mg Vial IM Q15MIN PRN BG <70, and no IV access Ceftriaxone Sodium/Dextrose 1 gm in 50 mls @ 100 mls/hr 10/28/24 09:00 10/28/24 10:31 Rocephin/D5w 1gm Iv Premix IV 11/04/24 08:59 Infused QDAY NORBERT Infusion Azithromycin 500 mg/ Sodium 250 mls @ 250 mls/hr 10/28/24 21:00 Chloride IV 11/04/24 20:59 2100 NORBERT Dextrose 1,000 mls @ 70 mls/hr 10/28/24 03:27 10/28/24 09:51 D10w 1000 Ml IV 0 mls/hr .[id number] NORBERT Infusion Octreotide Acetate 1,000 mcg/ 102 mls @ 5.1 mls/hr 10/28/24 05:30 10/28/24 09:51 Sodium Chloride IV 0 mcg/hr .Q20H NORBERT 0 mls/hr Infusion Protocol 50 MCG/HR Insulin Human Lispro 0 unit 10/28/24 07:30 10/28/24 11:49 Insulin Lispro (Admelog) 1 Unit/0.01 Ml Unit SC 11/27/24 07:29 Not Given AC NORBERT Protocol Metoprolol Succinate 25 mg 10/28/24 09:00 10/28/24 09:57 Metoprolol Succinate Xl 25 Mg Tabcr PO 11/27/24 08:59 25 mg QDAY NORBERT Administration Ondansetron HCl 4 mg 10/27/24 20:37 Ondansetron Inj 2 Mg/Ml Inj 2 Ml IVP 11/26/24 20:36 Q6H PRN NAUSEA OR VOMITING Protocol Pantoprazole Sodium 40 mg 10/27/24 21:00 10/28/24 09:56 Pantoprazole 40 Mg Tablet PO 11/26/24 20:59 40 mg Q12HR NORBERT Administration Paroxetine HCl 20 mg 10/28/24 09:00 10/28/24 11:12 Paroxetine Hcl 10 Mg Tablet PO 11/27/24 08:59 20 mg QDAY NORBERT Administration Rivaroxaban 2.5 mg 10/28/24 10:04 Rivaroxaban 2.5 Mg Tablet PO 11/27/24 08:59 QDAY NORBERT Sennosides 1 tab 10/27/24 20:37 Senna Tablet PO 11/26/24 20:36 QDAY PRN constipation Protocol Plan Loyda Li is a 84F pmhx significant for dementia, NIDDM2, afib on Xarelto, CAD, and blindness 2/2 diabetic retinopathy presenting with seizure-like activity 2/2 hypoglycemia and electrolyte abnormalities, found to have pneumonia and UTI. #Hypoglycemia #NIDDM2 Patient's initial glucose reading by EMS was 51. D10 and D50 were given by EMS but glucose increased initially however later decreased. More D50 was administered increasing the blood sugar. D10 drip initiated and blood glucose held around 90s. On admission to hospitalist team, patient glucose was increasing from 148-258. Subsequently D10 drip and octreotide were discontinued. Glucose levels currently leveling out 145-150s Ddx: Hypoglycemia likely secondary to poor oral intake and continued glimepiride administration vs glimepiride overdose however latter less likely HbA1c 6.7 Plan: - Glucose checks q4h - Encourage patient to eat consistent carb diet and juices - Hold SSI for now - Hold home glimepiride and consider discontinuing outpatient #Acute seizure-like activity likely 2/2 electrolyte abnormalities and/or hypoglycemia #Lactic acid elevation Patient experienced witnessed seizure-like activity, with symptoms of generalized shaking and stiffness lasting approximately 2 minutes with no prior seizure history. Per EMS patient did not experience postictal state. Low suspicion for true seizure. Likely secondary to hypokalemia, hypomagnesemia, hypocalcemia, hypophosphatemia, and/or hypoglycemia 2/2 low oral intake and diabetic medication. Ddx also includes active UTI. In ED, received Keppra loading dose x 1 CT head negative for acute processes Plan: - If seizure-like activity reoccurs, low threshold for EEG and neurology consultation - Replete electrolytes abnormalities as below and continue as needed #Electrolyte abnormalities #Hypokalemia #Hypomagnesemia #Hypocalcemia #Hypophosphatemia On admission, K 2.6, Mg 1.0, Ca 6.5 and phosphorus 1.1, and received multiple repletions for aforementioned. Multitude of electrolyte abnormalities likely secondary to poor oral intake while resuming home medications such as digoxin which is known to cause electrolyte abnormalities. K, Mg, Ca and phosphorus improving following repletion. Plan: - Encourage oral intake - CTM electrolytes - Telemetry for arrhythmias - Continue repleting as needed #Chronic atrial fibrillation, rate controlled #HTN Patient presented in atrial fibrillation with a heart rate of 91 on EKG, rate controlled on metoprolol succinate 25 mg daily and on Xarelto 2.5 mg BID at home. Plan: - Follow-up patient cytology supervisor when daughter at bedside - Telemetry for arrhythmias - CTM electrolytes - Continue metoprolol succinate 25 mg daily, digoxin 125 mcg daily, and Xarelto 2.5 mg daily - Consider discontinuing digoxin due to known electrolyte abnormality side effects after consulting with patient cytology supervisor #PNA, aspiration vs CAP #UTI On admission, CXR showed bilateral lower lung infiltrates and UA showed +LE and nitrites, WBC 74 and 4+ bacteria. Ddx PNA: Aspiration pneumonia secondary to seizure-like activity vs CAP however patient denies recent URI symptoms. Currently denies shortness of breath and saturating 95% on room air. CXR shows bilateral lower lung zone pneumonia Plan: - Azithromycin and ceftriaxone (10/27- - CTM vitals and WBC - F/u UCx and BCx #Subclinical hypothyroidism #Dementia #Hx of CAD #Depression #Dementia Chronic medical conditions nonpertinent to the following presentation Plan: - F/u with outpatient PCP - Restart home rivastigmine patch 9.5 mg and paroxetine 20 mg QD Hospital management: Lines: Peripheral IV Diet: Consistent Carb Bowel: Senna GI prophylaxis: Pantoprazole 40 BID DVT prophylaxis: Xarelto 2.5 mg QD Disposition: telemetry for electrolyte abnormalities and hypoglycemia workup CODE STATUS: Full code Plan of care discussed with attending Dr. Montilla, and PGY-2 Dr. Tim Guthrie, DO PGY-1 Internal Medicine
[2024-10-28] MEDS: POTASSIUM CHLORIDE 10% 20 MEQ/15 ML UDC PO (16:57)
--- NOTE | 2024-10-28 20:24 | PC.NURSE ---
DR. VASQUEZ AT BEDSIDE. PT W/INCREASED CONFUSION AND AGITATION. ORDER TO GIVE MORPHINE X1 IVP.
[2024-10-28] MEDS: MORPHINE SULF INJ 10 MG/ML VIAL IVP (20:59)
[2024-10-28] MEDS: WATER, STERILE INJ 10 ML VIAL IV (21:00)
[2024-10-28] MEDS: AZITHROMYCIN INJ 500 MG in SODIUM CHLORIDE 0.9% 250 ML 250 ML 250 MG IV (21:00)
[2024-10-28] MEDS: RIVASTIGMINE TOP (21:02)
[2024-10-29] VITALS (9 sets, daily range): BP systolic 140–164; BP diastolic 74–104; PULSE 60–93; RESP 16–93; TEMP 36.2–36.8; O2SAT 90–95; BMI 22.4; BMI 22.5
--- NOTE | 2024-10-29 02:52 | PC.NURSE ---
PT GETTING RESTLESS, YELLING OUT, ATTEMPTING TO GET OOB. DR. JOSE AT BEDSIDE. NEW ORDER FOR ATIVAN PO GIVEN.
[2024-10-29] MEDS: LORazepam 2 MG/ML VIAL 0.25 MG IV (03:14)
[2024-10-29 06:12] LABS: Basophils # (Auto) 0.1 Thou/mm3 (0.0-0.2); Basophils % (Auto) 1 % (0-2.5); Eosinophils # (Auto) 0.1 Thou/mm3 (0.0-0.5); Eosinophils % (Auto) 2 % (0-10); Hematocrit 36.6 % (36.0-46.0); Hemoglobin 11.4 g/dL (12.0-16.0); Immature Granulocytes Auto 0.02 Thou/mm3 (0.00-0.00); Lymphocytes # (Auto) 1.5 Thou/mm3 (1.0-4.8); Lymphocytes % (Auto) 29 % (10-50); Mean Corpuscular HGB Conc 31.1 g/dl (31.0-37.0); Mean Corpuscular Hemoglobin 26.6 pg (25.0-35.0); Mean Corpuscular Volume 86 fL (80-100); Monocytes # (Auto) 0.6 Thou/mm3 (0.0-0.8); Monocytes % (Auto) 12 % (0-12); Neutrophils # (Auto) 3.0 Thou/mm3 (1.8-7.7); Neutrophils % (Auto) 56 % (37-80); Nucleated Red Blood Cell # 0.00 Thou/mm3 (0.00-0.00); Nucleated Red Blood Cell % 0 /100 WBC (0); Platelet Count 167 Thou/mm3 (140-440); RDW Standard Deviation 43.6 fL (36.4-46.3); Red Blood Count 4.28 Miln/mm3 (4.00-5.20); White Blood Count 5.3 Thou/mm3 (3.6-11.0)
[2024-10-29 06:49] LABS: Albumin, Serum 3.4 gm/dL (3.4-4.8); Anion Gap 14 (7-16); BUN/Creatinine Ratio 7 Ratio (12-20); Blood Urea Nitrogen < 5 mg/dL (9-23); Calcium (Corrected) 7.1 mg/dL (8.5-10.1); Carbon Dioxide 25.1 mMol/L (20.0-31.0); Chloride 103 mMol/L (98-107); Creatinine (Component) 0.7 mg/dL (0.6-1.3); Estimated Creatinine Clearance 49.5 mL/min (>60); Glucose 120 mg/dL (74-106); Magnesium 1.3 mg/dL (1.6-2.6); Osmolality,Calculated 281 (275-295); Phosphorous 2.2 mg/dL (2.4-5.1); Potassium 3.3 mMol/L (3.4-5.1); Sodium 142 mMol/L (136-145); eGFR > 60 See Note
[2024-10-29 06:58] LABS: Calcium 6.6 mg/dL (8.3-10.6)
[2024-10-29] MEDS: RIVAROXABAN 2.5 MG TABLET PO (10:40)
[2024-10-29] MEDS: PANTOPRAZOLE 40 MG TABLET PO ×2 (10:40→20:13)
[2024-10-29] MEDS: METOPROLOL SUCCINATE XL 25 MG TABCR PO (10:40)
[2024-10-29] MEDS: cefTRIAXone/D5w 1gm IV premix 1 GM/50 ML BAG IV (10:42)
[2024-10-29] MEDS: DIGOXIN 0.125 MG TABLET PO (10:42)
[2024-10-29] MEDS: POT PHOS 15 mMol in NS 250 ML 15 MMOL/250 ML BAG 62.5 MMOL IV (10:43)
[2024-10-29] MEDS: Magnesium Sulfate 4 GM Ivpb 4 GM/50 ML BAG IV (10:43)
--- NOTE | 2024-10-29 12:16 | PC.SS ---
Update: Patient receiving IV antibiotics. Restraints in place.
--- NOTE | 2024-10-29 13:44 | PC.PT ---
Daughter at bedside. Patient has mild generalized tremor during movement. As per daughter, patient is non ambulatory but was able to stand up and transfers. Patient is wc bound. Patient has wc that she uses for community distance and patient will sit on the RW and daughter will bring her to the restroom. Daughter also mentioned that patient will have episodes of confusion 1-2x/month but patient gets more confused while she is at the hospital. As per daughter, she can manage patient at home as she has been taking care of her. Daughter requested homehealth therapy services. [facility] made aware. Will cancel PT evaluation. Daughter in agreement.
--- NOTE | 2024-10-29 14:25 | PC.SS ---
Rounding Note: Plan is to d/c patient tomorrow. Home with home health.
[2024-10-29] MEDS: CALCIUM GLUC/NS 1000MG IVPB 1,000 MG/50 ML BAG 50 MG IV (14:31)
--- NOTE | 2024-10-29 17:10 | ESPR_ITS ---
<Statement entered by Osiris Montilla MD - 11/07/24 14:33> I reviewed above note and agree with findings and plans. I have also personally examined the patient with medicine team and went over assessment and plan with medical team including business development intern and resident physician. Documentation for date of: 10/29/24 Subjective Subjective Interval history: Patient is seen at bedside, patient's daughter is also at bedside who stated patient is not at her baseline mentation. Patient is awake and alert and knows most information however exhibited some confusion about her whereabouts. Patient currently has no complaints, is eating oral diet. Vitals are stable patient is saturating on room air labs are reviewed and are within normal limits with the exception of potassium 3.3, magnesium 1.3, phosphorus 2.2. Electrolytes are repleted. Urine culture had no growth other than contamination and blood culture preliminary report is negative. Exam Vital Signs Temp Pulse Resp BP Pulse Ox O2 Del Method O2 Flow Rate 97.8 F 88 19 140/104 H 90 L Room Air 2 10/29/24 16:10/29/24 16:10/29/24 16:10/29/24 16:10/29/24 16:10/29/24 16:10/28/24 03:09 Narrative Exam GENERAL: AOx2, no acute distress, pleasant elderly female, well groomed, appears to be confused HEENT: NC/AT, mucous membranes dry, bilateral sclera anicteric CARDIOVASCULAR: irregular rate and rhythm PULMONARY: clear to auscultation bilaterally, no rales/rhonchi/wheezes ABDOMINAL: soft, non-distended, no rebound/guarding, bowel sounds present,no abdominal tenderness EXTREMITIES: no peripheral edema SKIN: warm and dry, intact, no rashes, +bruising on BUE, wrapped abrasion on L wrist NEURO: CN II-XII grossly intact, no focal deficits, alert, following commands Objective Labs 10/29/24 04:49 10/29/24 04:49 Labs: Laboratory Results - last 24 hr 10/29/24 04:49 WBC 5.3 RBC 4.28 Hgb 11.4 L Hct 36.6 MCV 86 MCH 26.6 MCHC 31.1 RDW Std Deviation 43.6 Plt Count 167 Neut % (Auto) 56 Lymph % (Auto) 29 [place] % (Auto) 12 Eos % (Auto) 2 Baso % (Auto) 1 Neut # (Auto) 3.0 Lymph # (Auto) 1.5 [place] # (Auto) 0.6 Eos # (Auto) 0.1 Baso # (Auto) 0.1 Immature Gran # (Auto) 0.02 H Absolute Nucleated RBC 0.00 Immature Gran % 0 Nucleated RBC % 0 Sodium 142 Potassium 3.3 L Chloride 103 Carbon Dioxide 25.1 Anion Gap 14 BUN < 5 L Creatinine 0.7 Estim Creat Clear Calc 49.5 L eGFR > 60 BUN/Creatinine Ratio 7 L Glucose 120 H Calculated Osmolality 281 Calcium 6.6 L* Corrected Calcium 7.1 L Phosphorus 2.2 L Magnesium 1.3 L Albumin 3.4 ABG Interpretation ABG results: 10/27/24 19:06 VBG pH 7.46 VBG pCO2 33 L VBG pO2 32 VBG Base Excess 0 Quality Measures Quality Measures VTE prophylaxis Advance care planning discussed with:: child Assessment & Plan Assessment Current Active Medications: Generic Name Dose Route Start Last Admin Trade Name Freq PRN Reason Stop Dose Admin Acetaminophen 650 mg 10/27/24 20:37 Acetaminophen 325 Mg Tablet PO 11/26/24 20:36 Q6H PRN Fever >100.4 Acetaminophen 650 mg 10/27/24 20:37 Acetaminophen 325 Mg Tablet PO 11/26/24 20:36 Q6H PRN PAIN SCALE 1-3 (mild Patient Own Medication 1 ea/ 0 ea 10/29/24 21:00 IV Miscellaneous Supplies 1 TOP 11/28/24 20:59 btl 2100 NORBERT Dextrose 25 ml 10/27/24 21:31 Dextrose 50%-Water Inj 50 Ml Syringe IV 11/26/24 21:30 Q15MIN PRN BG 50-70 responsive npo pt Dextrose 50 ml 10/27/24 21:31 10/27/24 22:36 Dextrose 50%-Water Inj 50 Ml Syringe IV 11/26/24 21:30 50 ml Q15MIN PRN Administration BG <50 OR BG <70 & pt unresponsive Digoxin 0.125 mg 10/28/24 09:00 10/29/24 10:42 Digoxin 0.125 Mg Tablet PO 11/27/24 08:59 0.125 mg QDAY NORBERT Administration Glucagon 1 mg 10/27/24 21:31 Glucagon Inj 1 Mg Vial IM Q15MIN PRN BG <70, and no IV access Ceftriaxone Sodium/Dextrose 1 gm in 50 mls @ 100 mls/hr 10/28/24 09:00 10/29/24 10:42 Rocephin/D5w 1gm Iv Premix IV 11/04/24 08:59 100 mls/hr QDAY NORBERT Administration Azithromycin 500 mg/ Sodium 250 mls @ 250 mls/hr 10/28/24 21:00 10/28/24 21:00 Chloride IV 11/04/24 20:59 250 mls/hr 2100 NORBERT Administration Insulin Human Lispro 0 unit 10/28/24 07:30 10/28/24 11:49 Insulin Lispro (Admelog) 1 Unit/0.01 Ml Unit SC 11/27/24 07:29 Not Given AC NORBERT Protocol Metoprolol Succinate 25 mg 10/28/24 09:00 10/29/24 10:40 Metoprolol Succinate Xl 25 Mg Tabcr PO 11/27/24 08:59 25 mg QDAY NORBERT Administration Ondansetron HCl 4 mg 10/27/24 20:37 Ondansetron Inj 2 Mg/Ml Inj 2 Ml IVP 11/26/24 20:36 Q6H PRN NAUSEA OR VOMITING Protocol Pantoprazole Sodium 40 mg 10/27/24 21:00 10/29/24 10:40 Pantoprazole 40 Mg Tablet PO 11/26/24 20:59 40 mg Q12HR NORBERT Administration Paroxetine HCl 20 mg 10/28/24 09:00 10/29/24 10:48 Paroxetine Hcl 10 Mg Tablet PO 11/27/24 08:59 Not Given QDAY NORBERT Polyethylene Glycol 34 gm 10/29/24 09:00 10/29/24 10:48 Polyethylene Glycol 17 Gm Packet PO 11/28/24 08:59 Not Given QDAY NORBERT Rivaroxaban 2.5 mg 10/28/24 10:04 10/29/24 10:40 Rivaroxaban 2.5 Mg Tablet PO 11/27/24 08:59 2.5 mg QDAY NORBERT Administration Sennosides 2 tab 10/29/24 09:00 10/29/24 10:48 Senna/Docusate Sod 1 Tab Tablet PO 11/28/24 08:59 Not Given QDAY NORBERT Protocol Plan Loyda Li is a 84F pmhx significant for dementia, NIDDM2, afib on Xarelto, CAD, and blindness 2/2 diabetic retinopathy presenting with seizure-like activity 2/2 hypoglycemia and electrolyte abnormalities, found to have pneumonia and UTI. #Hypoglycemia - resolved #Non-insulin dependent type 2 diabetes Patient's initial glucose reading by EMS was 51. D10 and D50 were given by EMS but glucose increased initially however later decreased. More D50 was administered increasing the blood sugar. D10 drip initiated and blood glucose held around 90s. On admission to hospitalist team, patient glucose was increasing from 148-258. Subsequently D10 drip and octreotide were discontinued. Glucose levels currently leveling out 145-150s Ddx: Hypoglycemia likely secondary to poor oral intake and continued glimepiride administration vs glimepiride overdose HbA1c 6.7 on 10/27/24 Plan: - Glucose checks q4h - Encourage patient to eat consistent carb diet and juices - Hold SSI for now and continue to monitor finger stick glucose Q4H - Hold home glimepiride and will consider discontinuing on discharge #Electrolyte abnormalities #Hypokalemia #Hypomagnesemia #Hypocalcemia #Hypophosphatemia On admission, K 2.6, Mg 1.0, Ca 6.5 and phosphorus 1.1, and received multiple repletions for aforementioned. Multitude of electrolyte abnormalities likely secondary to poor oral intake while resuming home medications such as digoxin which is known to cause electrolyte abnormalities. K, Mg, Ca and phosphorus improving following repletion. Plan: - Encourage oral intake - Continue to monitor electrolytes - Telemetry for arrhythmias - Continue repleting as needed #Acute seizure-like activity likely 2/2 electrolyte abnormalities and/or hypoglycemia- resolved #Lactic acid elevation Patient experienced witnessed seizure-like activity, with symptoms of generalized shaking and stiffness lasting approximately 2 minutes with no prior seizure history. Per EMS patient did not experience postictal state. Low suspicion for true seizure. Likely secondary to hypokalemia, hypomagnesemia, hypocalcemia, hypophosphatemia, and/or hypoglycemia 2/2 low oral intake and diabetic medication. Ddx also includes active UTI. In ED, received Keppra loading dose x 1 CT head negative for acute processes Plan: - If seizure-like activity reoccurs, low threshold for EEG and neurology consultation - Replete electrolytes abnormalities as below and continue as needed #Chronic atrial fibrillation, rate controlled #Primary hypertension Patient presented in atrial fibrillation with a heart rate of 91 on EKG, rate controlled on metoprolol succinate 25 mg daily and on Xarelto 2.5 mg BID at home. [id number] score Plan: - Follow-up patient financial services technician when daughter at bedside - Telemetry for arrhythmias - CTM electrolytes - Continue metoprolol succinate 25 mg daily, digoxin 125 mcg daily, and Xarelto 2.5 mg daily - Consider discontinuing digoxin due to known electrolyte abnormality side effects after consulting with patient financial services technician #PNA, aspiration vs CAP #UTI On admission, CXR showed bilateral lower lung infiltrates and UA showed +LE and nitrites, WBC 74 and 4+ bacteria. Ddx PNA: Aspiration pneumonia secondary to seizure-like activity vs CAP however patient denies recent URI symptoms. Currently denies shortness of breath and saturating 95% on room air. CXR shows bilateral lower lung zone pneumonia Plan: - Azithromycin and ceftriaxone (10/27- - CTM vitals and WBC - F/u UCx and BCx #Subclinical hypothyroidism #Dementia #Hx of CAD #Depression #Dementia Chronic medical conditions nonpertinent to the following presentation Plan: - F/u with outpatient PCP - Restart home rivastigmine patch 9.5 mg and paroxetine 20 mg QD Hospital management: Lines: Peripheral IV Diet: Consistent Carb Bowel: Senna GI prophylaxis: Pantoprazole 40 BID DVT prophylaxis: Xarelto 2.5 mg QD Disposition: telemetry for electrolyte abnormalities and hypoglycemia workup CODE STATUS: Full code Assessment and plan discussed with my attending physician Dr. Eladia Dumont (PGY-2)- Internal medicine resident
[2024-10-29] MEDS: HYDROcodone/APAP 5/325 TABLET 1 TAB PO (19:53)
[2024-10-29] MEDS: [UNRECOGNIZED DRUG - OTHER] TOP (20:13)
[2024-10-29] MEDS: AZITHROMYCIN INJ 500 MG in SODIUM CHLORIDE 0.9% 250 ML 250 ML 250 MG IV (20:13)
[2024-10-30] VITALS (11 sets, daily range): BP systolic 112–167; BP diastolic 67–94; PULSE 62–116; RESP 14–97; TEMP 36.1–36.6; O2SAT 93–97; BMI 22.5
[2024-10-30] MEDS: ACETAMINOPHEN 325 MG TABLET 650 MG PO (03:40)
[2024-10-30 04:26] LABS: Basophils # (Auto) 0.1 Thou/mm3 (0.0-0.2); Basophils % (Auto) 1 % (0-2.5); Eosinophils # (Auto) 0.1 Thou/mm3 (0.0-0.5); Eosinophils % (Auto) 2 % (0-10); Hematocrit 39.0 % (36.0-46.0); Hemoglobin 12.0 g/dL (12.0-16.0); Immature Granulocytes Auto 0.02 Thou/mm3 (0.00-0.00); Lymphocytes # (Auto) 1.9 Thou/mm3 (1.0-4.8); Lymphocytes % (Auto) 27 % (10-50); Mean Corpuscular HGB Conc 30.8 g/dl (31.0-37.0); Mean Corpuscular Hemoglobin 26.1 pg (25.0-35.0); Mean Corpuscular Volume 85 fL (80-100); Monocytes # (Auto) 0.9 Thou/mm3 (0.0-0.8); Monocytes % (Auto) 13 % (0-12); Neutrophils # (Auto) 3.9 Thou/mm3 (1.8-7.7); Neutrophils % (Auto) 57 % (37-80); Nucleated Red Blood Cell # 0.00 Thou/mm3 (0.00-0.00); Nucleated Red Blood Cell % 0 /100 WBC (0); Platelet Count 198 Thou/mm3 (140-440); RDW Standard Deviation 43.6 fL (36.4-46.3); Red Blood Count 4.60 Miln/mm3 (4.00-5.20); White Blood Count 6.8 Thou/mm3 (3.6-11.0)
[2024-10-30 04:47] LABS: Albumin, Serum 3.5 gm/dL (3.4-4.8); Anion Gap 11 (7-16); BUN/Creatinine Ratio 8 Ratio (12-20); Blood Urea Nitrogen < 5 mg/dL (9-23); Carbon Dioxide 27.0 mMol/L (20.0-31.0); Chloride 101 mMol/L (98-107); Creatinine (Component) 0.6 mg/dL (0.6-1.3); Estimated Creatinine Clearance 55.2 mL/min (>60); Glucose 108 mg/dL (74-106); Magnesium 1.5 mg/dL (1.6-2.6); Osmolality,Calculated 275 (275-295); Phosphorous 2.3 mg/dL (2.4-5.1); Potassium 3.0 mMol/L (3.4-5.1); Sodium 139 mMol/L (136-145); eGFR > 60 See Note
[2024-10-30 05:10] LABS: Calcium 6.4 mg/dL (8.3-10.6); Calcium (Corrected) 6.8 mg/dL (8.5-10.1)
[2024-10-30] MEDS: CALCIUM GLUC/NS 1000MG IVPB 1,000 MG/50 ML BAG 50 MG IV (05:50)
[2024-10-30] MEDS: Magnesium Sulfate 4 GM Ivpb 4 GM/50 ML BAG IV (06:05)
[2024-10-30] MEDS: POT PHOS 15 mMol in NS 250 ML 15 MMOL/250 ML BAG 62.5 MMOL IV ×2 (06:06→10:56)
[2024-10-30] MEDS: cefTRIAXone/D5w 1gm IV premix 1 GM/50 ML BAG IV (08:31)
[2024-10-30] MEDS: POLYETHYLENE GLYCOL 17 GM PACKET 34 GM PO (08:31)
[2024-10-30] MEDS: DIGOXIN 0.125 MG TABLET PO (08:32)
[2024-10-30] MEDS: CALCIUM CARBONATE 600 MG TABLET PO ×2 (08:32→20:55)
[2024-10-30] MEDS: SENNA/DOCUSATE SOD 1 TAB TABLET 2 TAB PO (08:32)
[2024-10-30] MEDS: PANTOPRAZOLE 40 MG TABLET PO ×2 (08:33→20:55)
[2024-10-30] MEDS: MAGNESIUM OXIDE 400 MG TABLET PO ×2 (08:33→20:55)
[2024-10-30] MEDS: RIVAROXABAN 2.5 MG TABLET PO (08:33)
[2024-10-30] MEDS: METOPROLOL SUCCINATE XL 25 MG TABCR PO (08:33)
--- NOTE | 2024-10-30 10:47 | ESPR_ITS ---
<Statement entered by Migel Garvey MD - 10/30/24 16:05> Patient was seen and examined at bedside. I agree on the assessment and plan on this note as documented by resident Dr Paula Guthrie PGY1. Patient confusion has improved remarkably, has no current complaints, has significant electrolyte abnormalities we will replete and correct magnesium, potassium, phosphorus and calcium. Patient was restarted on calcium carbonate twice daily and magnesium oxide supplementation as well which we can continue outpatient. Obtain further workup # PTH, vitamin D and thiamine. Hypoglycemia has resolved. Patient is on IV antibiotics, will transition to p.o. on discharge in AM. Case discussed with attending Dr. Elmore. Migel Garvey MD PGY-2 Documentation for date of: 10/30/24 Subjective Subjective Interval history: Overnight still 3.0 K, Ca 6.8, Mg 1.5, Ph 2.3, all of which were repleted. Patient seen and examined at bedside. Patient has no new complaints today denies chest pain shortness of breath abdominal pain any urinary symptoms or fever. Self reports that she has been eating, although nursing has reported 0% meals. However, family has been bringing outside food such as mashed potatoes which she has been eating. Glucose has been stable in the high 90s low 100s to 120s. Started on calcium carbonate 600 mg twice daily and magnesium oxide 400 twice a day. Change glucose checks from every 4 to every 6. Hypocalcemia workup: Follow-up PTH, vitamin D, and thiamine a.m. draw tomorrow. Continue antibiotics inpatient, anticipate 5 day course Exam Vital Signs Temp Pulse Resp BP Pulse Ox O2 Del Method O2 Flow Rate 97.8 F 110 H 14 113/75 95 Room Air 2 10/30/24 08:00 10/30/24 08:33 10/30/24 08:00 10/30/24 08:33 10/30/24 08:00 10/30/24 08:00 10/28/24 03:09 Narrative Exam GENERAL: AOx2, no acute distress, pleasant elderly female, well groomed, appears to be confused HEENT: NC/AT, mucous membranes dry, bilateral sclera anicteric CARDIOVASCULAR: irregular rate and rhythm, 2/6 systolic murmur PULMONARY: clear to auscultation bilaterally, no rales/rhonchi/wheezes ABDOMINAL: soft, non-distended, no rebound/guarding, bowel sounds present,no abdominal tenderness EXTREMITIES: no peripheral edema SKIN: warm and dry, intact, no rashes, +bruising on BUE, wrapped abrasion on L wrist NEURO: CN II-XII grossly intact, no focal deficits, alert, following commands Objective Labs 10/30/24 04:14 10/30/24 04:14 Labs: Laboratory Results - last 24 hr 10/30/24 04:14 WBC 6.8 RBC 4.60 Hgb 12.0 Hct 39.0 MCV 85 MCH 26.1 MCHC 30.8 L RDW Std Deviation 43.6 Plt Count 198 D Neut % (Auto) 57 Lymph % (Auto) 27 [place] % (Auto) 13 H Eos % (Auto) 2 Baso % (Auto) 1 Neut # (Auto) 3.9 Lymph # (Auto) 1.9 [place] # (Auto) 0.9 H Eos # (Auto) 0.1 Baso # (Auto) 0.1 Immature Gran # (Auto) 0.02 H Absolute Nucleated RBC 0.00 Immature Gran % 0 Nucleated RBC % 0 Sodium 139 Potassium 3.0 L Chloride 101 Carbon Dioxide 27.0 Anion Gap 11 BUN < 5 L Creatinine 0.6 Estim Creat Clear Calc 55.2 L eGFR > 60 BUN/Creatinine Ratio 8 L Glucose 108 H Calculated Osmolality 275 Calcium 6.4 L* Corrected Calcium 6.8 L* Phosphorus 2.3 L Magnesium 1.5 L Albumin 3.5 ABG Interpretation ABG results: 10/27/24 19:06 VBG pH 7.46 VBG pCO2 33 L VBG pO2 32 VBG Base Excess 0 Quality Measures Quality Measures VTE prophylaxis Advance care planning discussed with:: patient and other Assessment & Plan Assessment Current Active Medications: Generic Name Dose Route Start Last Admin Trade Name Freq PRN Reason Stop Dose Admin Acetaminophen 650 mg 10/27/24 20:37 Acetaminophen 325 Mg Tablet PO 11/26/24 20:36 Q6H PRN Fever >100.4 Acetaminophen 650 mg 10/27/24 20:37 10/30/24 03:40 Acetaminophen 325 Mg Tablet PO 11/26/24 20:36 650 mg Q6H PRN Administration PAIN SCALE 1-3 (mild Calcium Carbonate 600 mg 10/30/24 09:00 10/30/24 08:32 Calcium Carbonate 600 Mg Tablet PO 11/29/24 08:59 600 mg BID NORBERT Administration Patient Own Medication 1 ea/ 0 ea 10/29/24 21:00 10/29/24 20:13 IV Miscellaneous Supplies 1 TOP 11/28/24 20:59 1 adh..patch btl 2100 NORBERT Administration Dextrose 25 ml 10/27/24 21:31 Dextrose 50%-Water Inj 50 Ml Syringe IV 11/26/24 21:30 Q15MIN PRN BG 50-70 responsive npo pt Dextrose 50 ml 10/27/24 21:31 10/27/24 22:36 Dextrose 50%-Water Inj 50 Ml Syringe IV 11/26/24 21:30 50 ml Q15MIN PRN Administration BG <50 OR BG <70 & pt unresponsive Digoxin 0.125 mg 10/28/24 09:00 10/30/24 08:32 Digoxin 0.125 Mg Tablet PO 11/27/24 08:59 0.125 mg QDAY NORBERT Administration Glucagon 1 mg 10/27/24 21:31 Glucagon Inj 1 Mg Vial IM Q15MIN PRN BG <70, and no IV access Ceftriaxone Sodium/Dextrose 1 gm in 50 mls @ 100 mls/hr 10/28/24 09:00 10/30/24 08:31 Rocephin/D5w 1gm Iv Premix IV 11/04/24 08:59 100 mls/hr QDAY NORBERT Administration Azithromycin 500 mg/ Sodium 250 mls @ 250 mls/hr 10/28/24 21:00 10/29/24 20:13 Chloride IV 11/04/24 20:59 250 mls/hr 2100 NORBERT Administration Potassium Phosphate 15 mmol in 250 mls @ 62.5 mls/hr 10/30/24 05:15 10/30/24 06:06 Pot Phos 15 Mmol In Ns 250 Ml IV 10/30/24 13:14 62.5 mls/hr Q4H NORBERT Administration Insulin Human Lispro 0 unit 10/28/24 07:30 10/28/24 11:49 Insulin Lispro (Admelog) 1 Unit/0.01 Ml Unit SC 11/27/24 07:29 Not Given AC [facility] Protocol Magnesium Oxide 400 mg 10/30/24 09:00 10/30/24 08:33 Magnesium Oxide 400 Mg Tablet PO 11/29/24 08:59 400 mg BID NORBERT Administration Metoprolol Succinate 25 mg 10/28/24 09:00 10/30/24 08:33 Metoprolol Succinate Xl 25 Mg Tabcr PO 11/27/24 08:59 25 mg QDAY NORBERT Administration Ondansetron HCl 4 mg 10/27/24 20:37 Ondansetron Inj 2 Mg/Ml Inj 2 Ml IVP 11/26/24 20:36 Q6H PRN NAUSEA OR VOMITING Protocol Pantoprazole Sodium 40 mg 10/27/24 21:00 10/30/24 08:33 Pantoprazole 40 Mg Tablet PO 11/26/24 20:59 40 mg Q12HR NORBERT Administration Paroxetine HCl 20 mg 10/30/24 09:45 10/30/24 10:21 Paroxetine Hcl 10 Mg Tablet PO 11/29/24 09:44 20 mg QDAY NORBERT Administration Polyethylene Glycol 34 gm 10/30/24 10:47 Polyethylene Glycol 17 Gm Packet PO 11/29/24 10:45 PRN PRN CONSTIPATION Rivaroxaban 2.5 mg 10/28/24 10:04 10/30/24 08:33 Rivaroxaban 2.5 Mg Tablet PO 11/27/24 08:59 2.5 mg QDAY NORBERT Administration Sennosides 2 tab 10/29/24 09:00 10/30/24 08:32 Senna/Docusate Sod 1 Tab Tablet PO 11/28/24 08:59 2 tab QDAY NORBERT Administration Protocol Plan Loyda Li is a 84F pmhx significant for dementia, NIDDM2, afib on Xarelto, CAD, and blindness 2/2 diabetic retinopathy presenting with seizure-like activity 2/2 hypoglycemia and electrolyte abnormalities, found to have pneumonia and UTI. #Hypoglycemia - resolved #Non-insulin dependent type 2 diabetes Patient's initial glucose reading by EMS was 51. D10 and D50 were given by EMS but glucose increased initially however later decreased. More D50 was administered increasing the blood sugar. D10 drip initiated and blood glucose held around 90s. On admission to hospitalist team, patient glucose was increasing from 148-258. Subsequently D10 drip and octreotide were discontinued. Glucose levels currently leveling out 90-100s not on SSI. Ddx: Hypoglycemia likely secondary to poor oral intake and continued glimepiride administration vs glimepiride overdose HbA1c 6.7 on 10/27/24 Plan: - Glucose checks from q4 to q6h - Encourage patient to eat consistent carb diet and juices - Hold SSI for now and continue to monitor finger stick glucose Q6H - Hold home glimepiride and will consider discontinuing on discharge #Electrolyte abnormalities #Hypokalemia #Hypomagnesemia #Hypocalcemia #Hypophosphatemia On admission, K 2.6, Mg 1.0, Ca 6.5 and phosphorus 1.1, and received multiple repletions for aforementioned. Multitude of electrolyte abnormalities likely secondary to poor oral intake while resuming home medications such as digoxin which is known to cause electrolyte abnormalities. K, Mg, Ca and phosphorus improving following repletion. Plan: - Encourage oral intake - Continue to monitor electrolytes and repleting as needed - Start calcium carbonate 600 mg twice daily and magnesium oxide 400 mg twice daily - Reassess electrolytes tomorrow and decrease or discontinue scheduled electrolyte PO repletion above - F/u PTH, thiamine and Vitamin D #Acute seizure-like activity likely 2/2 electrolyte abnormalities and/or hypoglycemia- resolved #Lactic acid elevation Patient experienced witnessed seizure-like activity, with symptoms of generalized shaking and stiffness lasting approximately 2 minutes with no prior seizure history. Per EMS patient did not experience postictal state. Low suspicion for true seizure. Likely secondary to hypokalemia, hypomagnesemia, hypocalcemia, hypophosphatemia, and/or hypoglycemia 2/2 low oral intake and diabetic medication. Ddx also includes active UTI. In ED, received Keppra loading dose x 1 CT head negative for acute processes Plan: - If seizure-like activity reoccurs, low threshold for EEG and neurology consultation - Replete electrolytes abnormalities as below and continue as needed #Chronic atrial fibrillation, rate controlled #Primary hypertension Patient presented in atrial fibrillation with a heart rate of 91 on EKG, rate controlled on metoprolol succinate 25 mg daily and on Xarelto 2.5 mg BID at home. [id number] Plan: - Follow-up patient field party manager when daughter at bedside - Telemetry for arrhythmias - CTM electrolytes - Continue metoprolol succinate 25 mg daily, digoxin 125 mcg daily, and Xarelto 2.5 mg daily - Consider discontinuing digoxin due to known electrolyte abnormality side effects after consulting with patient field party manager #PNA, aspiration vs CAP #UTI On admission, CXR showed bilateral lower lung infiltrates and UA showed +LE and nitrites, WBC 74 and 4+ bacteria. Ddx PNA: Aspiration pneumonia secondary to seizure-like activity vs CAP however patient denies recent URI symptoms. Currently denies shortness of breath and saturating 95% on room air. CXR shows bilateral lower lung zone pneumonia UCx mixed devika/possible contamination, BCx NGTD Plan: - Azithromycin and ceftriaxone (10/27- - Plan to transition ceftriaxone to Macrobid on discharge - CTM vitals and WBC #Subclinical hypothyroidism #Dementia #Hx of CAD #Depression #Dementia Chronic medical conditions nonpertinent to the following presentation Plan: - F/u with outpatient PCP - Restart home rivastigmine patch 9.5 mg and paroxetine 20 mg QD Hospital management: Lines: Peripheral IV Diet: Consistent Carb Bowel: Senna GI prophylaxis: Pantoprazole 40 BID DVT prophylaxis: Xarelto 2.5 mg QD Disposition: med surg for electrolyte abnormalities CODE STATUS: Full code Plan of care discussed with attending Dr. Elmore, and PGY-2 Dr. Garvey. Paula Guthrie, DO PGY-1 Internal Medicine Attending Provider Attestation/Addendum I attest that I was physically present for the evaluation, physical examination, lab and imaging review of the patient with the residents. I discussed the case with the residents and agree with the findings and plans of care as documented above. At bedside today, patient is alert and awake, pleasantly confused. Vitals are stable, labs results show multiple electrolyte imbalances including potassium of 3, calcium 6.8, magnesium 1.5 and phosphorus 2.3, repleted accordingly. We will obtain PTH, vitamin D and thiamine level in a.m. Glucose level have been stable. Anticipate discharge in 24 to 48 hours if electrolytes are adequately corrected and patient is able to have good oral intake. Tomas Elmore MD
[2024-10-30 16:52] LABS: Lactate (Lactic Acid) 1.6 mMol/L (0.4-2.0)
[2024-10-30 17:19] LABS: Creatine Kinase 184 U/L (34-171)
[2024-10-30] MEDS: HYDROcodone/APAP 5/325 TABLET 1 TAB PO (18:09)
[2024-10-30 20:23] LABS: Calcium 7.0 mg/dL (8.3-10.6)
[2024-10-30] MEDS: AZITHROMYCIN INJ 500 MG in SODIUM CHLORIDE 0.9% 250 ML 250 ML 250 MG IV (20:54)
[2024-10-30] MEDS: [UNRECOGNIZED DRUG - OTHER] TOP (20:57)
[2024-10-31] VITALS (9 sets, daily range): BP systolic 96–160; BP diastolic 54–87; PULSE 68–88; RESP 14–96; TEMP 36.1–36.6; O2SAT 92–98; BMI 22.8
[2024-10-31] MEDS: ACETAMINOPHEN 325 MG TABLET 650 MG PO (00:18)
[2024-10-31 05:10] LABS: Basophils # (Auto) 0.0 Thou/mm3 (0.0-0.2); Basophils % (Auto) 1 % (0-2.5); Eosinophils # (Auto) 0.2 Thou/mm3 (0.0-0.5); Eosinophils % (Auto) 3 % (0-10); Hematocrit 40.1 % (36.0-46.0); Hemoglobin 12.3 g/dL (12.0-16.0); Immature Granulocytes Auto 0.01 Thou/mm3 (0.00-0.00); Lymphocytes # (Auto) 1.8 Thou/mm3 (1.0-4.8); Lymphocytes % (Auto) 27 % (10-50); Mean Corpuscular HGB Conc 30.7 g/dl (31.0-37.0); Mean Corpuscular Hemoglobin 26.2 pg (25.0-35.0); Mean Corpuscular Volume 86 fL (80-100); Monocytes # (Auto) 0.9 Thou/mm3 (0.0-0.8); Monocytes % (Auto) 14 % (0-12); Neutrophils # (Auto) 3.6 Thou/mm3 (1.8-7.7); Neutrophils % (Auto) 56 % (37-80); Nucleated Red Blood Cell # 0.00 Thou/mm3 (0.00-0.00); Nucleated Red Blood Cell % 0 /100 WBC (0); Platelet Count 216 Thou/mm3 (140-440); RDW Standard Deviation 43.9 fL (36.4-46.3); Red Blood Count 4.69 Miln/mm3 (4.00-5.20); White Blood Count 6.5 Thou/mm3 (3.6-11.0)
[2024-10-31 05:29] LABS: Parathyroid Hormone Intact 1104.7 pg/ml (18.5-88.0)
[2024-10-31 05:34] LABS: Vitamin D 25 Hydroxy Total 7.4 ng/mL (7.3-40.2)
[2024-10-31 05:39] LABS: Albumin, Serum 3.6 gm/dL (3.4-4.8); Anion Gap 10 (7-16); BUN/Creatinine Ratio 8 Ratio (12-20); Blood Urea Nitrogen 5 mg/dL (9-23); Calcium (Corrected) 7.2 mg/dL (8.5-10.1); Carbon Dioxide 28.3 mMol/L (20.0-31.0); Chloride 103 mMol/L (98-107); Creatinine (Component) 0.6 mg/dL (0.6-1.3); Estimated Creatinine Clearance 55.2 mL/min (>60); Glucose 98 mg/dL (74-106); Osmolality,Calculated 278 (275-295); Phosphorous 2.7 mg/dL (2.4-5.1); Potassium 3.8 mMol/L (3.4-5.1); Sodium 141 mMol/L (136-145); eGFR > 60 See Note
[2024-10-31 06:27] LABS: Calcium 6.9 mg/dL (8.3-10.6)
[2024-10-31] MEDS: CALCIUM CARBONATE 600 MG TABLET PO (06:37)
--- NOTE | 2024-10-31 06:41 | PC.NURSE ---
MD Frost made aware of pts low calcium, okayed to give calcium before scheduled time
[2024-10-31] MEDS: cefTRIAXone/D5w 1gm IV premix 1 GM/50 ML BAG IV (08:32)
[2024-10-31] MEDS: SENNA/DOCUSATE SOD 1 TAB TABLET 2 TAB PO (08:32)
[2024-10-31] MEDS: METOPROLOL SUCCINATE XL 25 MG TABCR PO (08:32)
[2024-10-31] MEDS: PANTOPRAZOLE 40 MG TABLET PO (08:33)
[2024-10-31] MEDS: RIVAROXABAN 2.5 MG TABLET PO (08:33)
[2024-10-31] MEDS: MAGNESIUM OXIDE 400 MG TABLET PO (08:33)
[2024-10-31] MEDS: DIGOXIN 0.125 MG TABLET PO (08:33)
[2024-10-31] MEDS: CALCIUM GLUC/NS 1000MG IVPB 1,000 MG/50 ML BAG 50 MG IV (09:41)
[2024-10-31 09:45] LABS: Magnesium 2.2 mg/dL (1.6-2.6)
--- NOTE | 2024-10-31 10:40 | PC.CM ---
I received a referral for home health services. I did not see a PCP so I reach out to Chas with SS to find out if patient had a preference for an agency and name of patient's PCP.
--- NOTE | 2024-10-31 10:45 | PC.SS ---
Addendum entered by Damaris Dooley 10/31/24 16:56: [id number] arranged transportation and p/u ETA is 2200 or sooner. Addendum entered by Damaris Dooley 10/31/24 14:59: 1445-Pt called ASW back and ASW informed pt of the second choice of [facility] home health and Brenda agreed to their services. Transfer RN Deisy will work on the referral to [facility] for the pt for d/c. Addendum entered by Damaris Dooley 10/31/24 14:24: [id number]-ASW attempted to contact Next of Kin Brenda Li [phone] to inform her that [facility] does not offer home health; however, she did not answer. Pt will be assigned to [facility] as that was Brenda's 2nd choice of Home health care. SS will proceed with [facility] care for the pt. Original Note: Pt pts daughter and decision maker Brendapriya Li, the pts PCP is Dr. Cristina Hein [phone]; [address] [place] [address]. Brenda also stated they have selected [facility] for the pts home health care. ASW emailed Transfer RN to inform her of the family's selection. Transfer RN will need to reach out to [facility] for arrangements. Pts family is aware of the referral process.
--- NOTE | 2024-10-31 11:48 | PC.CM ---
Addendum entered by Deisy Lam RN 11/01/24 13:03: I faxed over the discharge summary to [facility]. Pending start of care date. Original Note: I received a referral for home health and patient wants [facility]. I did not see a PCP on orders so I spoke to Damaris. She states patient's PCP is Dexter Ramos. I put the name in the order and I put information in [facility]. I did not see [facility] health in our system so I called [facility] to see if they do both home health and hospice. I called Leanne Flynn and I am waiting for a call back.
--- NOTE | 2024-10-31 13:33 | ESDS_ITS ---
<Statement entered by Migel Garvey MD - 11/01/24 16:09> Patient was seen and examined by me personally. I have reviewed the below documentation by the team resident and agree with its findings. Discharge plan was discussed with the attending, Dr. Elmore. Migel Garvey MD Internal Medicine, PGY-2 Planned Discharge Date 10/31/24 DS: Providers Provider Date of admission: 10/27/24 20:37 Primary care physician: Physician No Primary/Family Admitting Provider: Rodrigo Cabral MD Attending Provider on Admission: Tomas Elmore MD Consults: 10/27/24 20:48 Referral Registered Dietitian Routine Comment: Attending Provider on DC: Tomas Elmore MD Discharging Provider: Tomas Elmore MD DS: Diagnosis Problem List Completed Was Problem List Reviewed/Reconciled?: Yes Hospital Course Hospital Course Hospital course: Overnight still 3.0 K, Ca 6.8, Mg 1.5, Ph 2.3, all of which were repleted. Patient seen and examined at bedside. Patient has no new complaints today denies chest pain shortness of breath abdominal pain any urinary symptoms or fever. Self reports that she has been eating, although nursing has reported 0% meals. However, family has been bringing outside food such as mashed potatoes which she has been eating. Glucose has been stable in the high 90s low 100s to 120s. Started on calcium carbonate 600 mg twice daily and magnesium oxide 400 twice a day. Change glucose checks from every 4 to every 6. Hypocalcemia workup: Follow-up PTH, vitamin D, and thiamine a.m. draw tomorrow. Continue antibiotics inpatient, anticipate 5 day course Summary: Loyda Li is a 84F pmhx significant for dementia, NIDDM2, afib on Xarelto, CAD, and blindness 2/2 diabetic retinopathy admitted to [facility] 10/27 presenting with seizure-like activity found to be hypoglycemic and have electrolyte abnormalities, also found to have pneumonia and UTI. Patient's hypoglycemia is likely caused by continuation of diabetic medication glimepiride with low oral intake, and was treated with glucose supplementation and eventually stabilized. On admission patient was also found to have electrolyte abnormalities, hypokalemia hypomagnesemia, hypocalcemia and hypophosphatemia also attributed to low poor intake. Parathyroid hormone was found to be very elevated, recommend to follow-up outpatient PCP. Electrolytes were repleted and eventually stabilized as well. Recommend to take supplements of potassium magnesium and calcium outpatient. Furthermore patient was found to have UTI and pneumonia on admission, chest x-ray findings below, patient was treated with antibiotics, will be discharged with 1 additional day of Augmentin. Imaging: Chest x-ray shows bilateral lower lung zone pneumonia Discharge Recommendations: - Please take all medications as prescribed - START taking Augmentin for one day - START magnesium, calcium, potassium and vitamin D supplementation - HOLD prednisone and lasix and follow up with PCP before resuming - STOP glimepiride due to hypoglycemia - Continue digoxin, metoprolol, paroxetine, Xarelto, pantoprazole and rivastigmine patch - Home health will be scheduled - DO follow up CMP labs within 2-3 days of discharge - Please follow up with your PCP within one week of discharge for hospitalization and elevated parathyroid levels - Follow up with [employer] outpatient in 1 week. - If your symptoms worsen, please seek immediate medical attention and return to your nearest emergency room. - If you do not have a PCP, you may follow up at the [facility] at [address] [place] [address] [id number] [id number], Hospital Diagnoses: #Hypoglycemia - resolved #Non-insulin dependent type 2 diabetes #Electrolyte abnormalities #Hypokalemia #Hypomagnesemia #Hypocalcemia #Hypophosphatemia #Acute seizure-like activity likely 2/2 electrolyte abnormalities and/or hypog lycemia- resolved #Lactic acid elevation #Chronic atrial fibrillation, rate controlled #Primary hypertension #PNA, aspiration vs CAP #UTI #Subclinical hypothyroidism #Dementia #Hx of CAD #Depression #Dementia Status at Discharge Cognitive/behavioral status at discharge: Stable Overall status at discharge: patient is back to baseline Time Spent with Patient Time attestation: Total time spent providing and/or coordinating discharge services: 38 min Time spent: Greater than 30 minutes Home Health Home Health Referral Orders: 10/31/24 09:05 Home Health Referral Routine Reason For Exam: Generalised weakness Home-Bound The patient must either because of illness or injury, need the aid of supportive devices such as crutches, canes, wheelchairs, and walkers; the use of special transportation; or the assistance of another person in order to leave their place of residence; OR have a condition such that leaving his or her home is medically contraindicated. In addition, the patient also meets the following criteria: patient is normally unable to leave the home and leaving home requires considerable taxing effort. Addendum to Home Health Certification Practitioner's Certification: I certify that the patient has been under my care in the hospital and the care of attending physician (see below). We had a [id number] encounter on (see date below). My clinical findings indicate that the patient is home bound per the above criteria and the Home Health Services noted in these orders are medically necessary. The primary reason for the [id number] encounter is related to the fact that the patient requires home health services. Date Certifying [id number] Physician Encounter: 10/27/24 Physician's Name who will Assume Oversight for HH Services: Dexter Ramos [employer] - Community Resources: No PT to Evaluate: Yes PT to evaluate and provide a treatmnet plan to increase patient's mobility and strength. Wound Care: No IV Therapy: No RN Safety Evaluation: Yes RN to evaluate and create a plan of care that will produce positive outcomes. Palliative Treatment: No Palliative treatment and evaluate the need for hospice. Home Health Aide - Personal Care: No Home Health Aide to assist with any ADL's. Exam Vital Signs Temp Pulse Resp BP Pulse Ox O2 Del Method O2 Flow Rate 97.0 F 75 17 160/71 H 98 Room Air 2 10/31/24 12:10/31/24 12:10/31/24 12:10/31/24 12:10/31/24 12:10/31/24 12:10/28/24 03:09 Constitutional Comments: GENERAL: AOx2, no acute distress, pleasant elderly female, well groomed, appears to be confused HEENT: NC/AT, mucous membranes moist, bilateral sclera anicteric CARDIOVASCULAR: irregular rate and rhythm, 2/6 systolic murmur PULMONARY: clear to auscultation bilaterally, no rales/rhonchi/wheezes ABDOMINAL: soft, non-distended, no rebound/guarding, bowel sounds present,no abdominal tenderness EXTREMITIES: no peripheral edema SKIN: warm and dry, intact, no rashes, +bruising on BUE, wrapped abrasion on L wrist NEURO: CN II-XII grossly intact, no focal deficits, alert, following commands Discharge Plan Plan Patient Disposition: Home w/HOME HEALTH Patient condition on transfer: Stable Care Plan Goals: Complete Antibiotic Therapy with Augmentin for one more day Continue Magnesium, Calcium, Potassium supplementation follow up CMP in 2-3 days and follow up with PCP within 1 week. We have prescribed Vitamin D for supplemenation, Your parathyroid levels are high, follow up with PCP for further workup. STOP GLIMEPRIDE, follow up with PCP for diabetes management. Hold Prednisone and Lasix (diuretic) follow up with PCP before resuming. Continue medications as prescribed. Follow up with PCP and [employer] [facility] outpatient in 1 week. Prescriptions/Referrals Prescriptions/Med Rec: New calcium carbonate 600 mg calcium (1,500 mg) Tablet 600 mg PO BID 30 Days Qty: 60 0RF magnesium oxide 400 mg (241.3 mg magnesium) Tablet 400 mg PO BID 30 Days Qty: 60 0RF potassium chloride 10 mEq tablet extended release 10 meq PO QDAY Qty: 30 0RF amoxicillin-pot clavulanate [Augmentin] 500-125 mg tablet 1 tab PO BID 1 Days Qty: 2 0RF cholecalciferol (vitamin D3) 1,250 mcg (50,000 unit) capsule 1,250 mcg PO QWEEK 35 Days Qty: 5 0RF Continued rivastigmine 9.5 mg/24 hour patch 24 hour 9.5 mg TOPICAL QDAY paroxetine HCl 20 mg tablet 20 mg PO QDAY Patient Comments: TAKE 1 TABLET BY MOUTH EVERY DAY pantoprazole 40 mg tablet,delayed release (DR/EC) 40 mg PO BID Patient Comments: TAKE 1 TABLET BY MOUTH TWICE A DAY digoxin 125 mcg (0.125 mg) tablet 125 mcg PO QDAY Patient Comments: TAKE 1 TABLET BY MOUTH EVERY DAY rivaroxaban [Xarelto] 2.5 mg tablet 2.5 mg PO BID metoprolol succinate 25 mg tablet extended release 24 hr 25 mg PO QDAY Patient Comments: TAKE 1 TABLET BY MOUTH EVERY DAY Held prednisone 1 mg tablet 1 mg PO TID Hold Instructions: Resume on 11/07/24. Follow up with PCP Patient Comments: TAKE 3 TABLETS BY MOUTH DAILY Discontinued glimepiride 1 mg tablet 1 mg PO QAM Referrals: No Primary/Family,Physician [Primary Care Provider] - Outpatient Orders (i.e. Home Health, Labs, Imaging): Comprehensive Metabolic Panel (Routine) Timeframe: 2 Weeks Location: Determined by Patient Ordered By: Migel Garvey Patient/Caregiver Discharge Instructions Discharge Activity: activity as tolerated Education Materials: Urinary Tract Infections in Women, Understanding Urinary Tract ... Print Language: Swedish Stand Alone Forms: [place] Award Info., Patient Portal Info Letter Discharge Order Discharge Orders: Discharge (Routine); Ordered 10/31/24 Ordered By: Migel Garvey Quality Discharge Quality Measures VTE prophylaxis MD Attestestation MD Attestation I attest that I was physically present for the evaluation, physical examination, lab and imaging review of the patient with the residents. I discussed the case with the residents and agree with the findings and plans of care as documented above. Tomas Elmore MD
--- NOTE | 2024-10-31 15:30 | PC.NURSE ---
After discharge patient stated that she could not stand to transfer to wheelchair for discharge transport. MD Garvey made aware and MD Dumont assessed patient at bedside. Patient was found to need gurney transport home. Transport to be arranged by .
[2024-11-05 14:41] LABS: Vitamin D,1,25 (OH)2,Total 74 pg/mL (18-72); Vitamin D2, 1,25 (OH)2 <8 pg/mL; Vitamin D3, 1,25 (OH)2 74 pg/mL
[2024-11-07 06:18] LABS: Vitamin B1 (Thiamine)* <6 nmol/L (8-30)
== END 2024-10-31 21:23 | disposition home health service (06) | DRG 637 ==
LOC: SERX 19:23 → SERHOLD 21:26 → S2SX 10-28 12:20 → S2NX 10-28 16:39 → S3SX 10-30 09:52
PROVIDERS: Family Medicine; Admitting Provider Student in an Organized Health Care Education/Training Program; Emergency Provider Emergency Medicine; Visit Provider Student in an Organized Health Care Education/Training Program
DX: E11.649 Type 2 diabetes mellitus with hypoglycemia without coma (principal); J18.9 Pneumonia, unspecified organism; J69.0 Pneumonitis due to inhalation of food and vomit; F03.93 Unspecified dementia, unspecified severity, with mood disturbance; I48.20 Chronic atrial fibrillation, unspecified; N39.0 Urinary tract infection, site not specified; E87.20 Acidosis, unspecified; H54.7 Unspecified visual loss; I10 Essential (primary) hypertension; E83.51 Hypocalcemia; E87.6 Hypokalemia; E83.42 Hypomagnesemia; E05.90 Thyrotoxicosis, unspecified without thyrotoxic crisis or storm; S60.812A Abrasion of left wrist, initial encounter; Z79.84 Long term (current) use of oral hypoglycemic drugs; E11.319 Type 2 diabetes mellitus with unspecified diabetic retinopathy without macular edema; E83.39 Other disorders of phosphorus metabolism; E03.8 Other specified hypothyroidism; I25.10 Atherosclerotic heart disease of native coronary artery without angina pectoris; F32.A Depression, unspecified
CPT/HCPCS: 36415; 70450; 71045; 80053; 80069; 81001; 82306; 82310; 82550; 82652; 82803; 83036; 83605; 83735; 83970; 84145; 84425; 84439; 84443; 84484; 85025; 85610; 85652; 86140; 87040; 87086; 87205; 87400; 87811; 93005; 93225; 96361; 96365; 96366; 96375; 96376; 99284; A4216; J0456; J0613; J0696; J1200; J1611; J1815; J1953; J2060; J2270; J2354; J2405; J3475; J3480; J7030; J7050; J7121; J7999; A9270